=== PATIENT | female | born 1950 | race Caucasian/White ===

== ENCOUNTER → 2017-03-13 | Outpatient (CLI) | payer OTHER ==
[~2017-03-13] MED LIST: ALBU90OI6 INH; ALBU90OI61; ALLO100 PO; ALPR.5 PO; AMOCLA875 PO; ASCO500 PO; ASPI325; ASPI325 PO; ASPI81EC; ATOR10; ATOR40TA PO; BECL40OI INH; BECL80OI INH; BUME1; BUPR150ER PO; CALCIT950 PO; CHOL10002 PO; CIPR500 PO; CIPRO500 MG PO; CITA20; CO Q-10400 MG PO; COLPRO PO; CRUTCH4 USE; CYCL10 PO; Coq-1030 MG; Cymbalta60 MG; DEXALANT PO; DOCU100 PO; DULO30 PO; DULO60 PO; EPIN.3I; EPIN.3I IM; ERGO400 PO; FERR325 PO; FURO20 PO; Flagyl500 MG PO; GABA600 PO; GLUC500 PO; Gabapentin600 MG PO; HYDACE5 PO; HYDACE5325 PO; HYDCHL25; HYDCHL25 PO; HYDSUL200 PO; Hair, Skin & N1 EACH PO; IBUP800; LEVSOD50 PO; LEVSOD75 PO; LEVSOD88 PO; LISINOPRIL-? DOSE; LOSA50 PO; METO50 PO; METO50ER PO; METPRE4DP PO; METR500 PO; MOME220I; MULT50L PO; MULVITMIND PO; NAPR250 PO; NAPR500 PO; NITR.4SL SL; NYST100SU MT; Naprosyn500 MG PO; Norco 5-325 Ta1 EACH PO; Norco 7.5-3251 EACH PO; OLME20 PO; OLME5TAB PO; OLOP.1OPSO BOTHEYES; OMEP20ER; OMEP20ER PO; OXYACE5T PO; OXYC5 PO; PENVK500 PO; POTA10T PO; POTCHL10ER PO; PREG100 PO; PROB500 PO; RISP.5 PO; RISP1 PO; RXHYD5325 PO; SIMV20; SIMV40 PO; SIMV5 PO; TERB250 PO; TOCO400 PO; TRAM50; TRAM50 PO; TRAZ50; VITAMIN B122500 MCG PO; VITNEPH PO; ZINC15; Zofran Odt4 MG SL; [UNRECOGNIZED DRUG - REMARK]; [UNRECOGNIZED DRUG - REMARK]
[2017-03-14 12:33] LABS: Protein, Urine Quantitative 6.1 mg/dL (0.0-11.9)
[2017-03-14 12:36] LABS: Microalbumin, Urine Quant. 8.8 mg/L (0.000-20.000)
== END ==
LOC: OLS 07:40
PROVIDERS: Internal Medicine Nephrology
DX: N18.2 Chronic kidney disease, stage 2 (mild) (principal); D63.1 Anemia in chronic kidney disease; R80.9 Proteinuria, unspecified
CPT/HCPCS: 81050; 82043; 84156

== ENCOUNTER 2017-07-17 12:53 | Day surgery (SDC) | payer MEDICARE, OTHER ==
[~2017-07-17] VITALS: Ht 175.3 cm; Wt 122.5 kg
[~2017-07-17 12:53] MED LIST changes: -ALBU90OI61; -BUME1; -Coq-1030 MG; -MOME220I; -Naprosyn500 MG PO; -Norco 5-325 Ta1 EACH PO; -TRAM50; -ZINC15
[2017-07-17] MEDS ORDERED: Coq-1030 MG (13:19)
[2017-07-17] MEDS ORDERED: ZINC15 (13:19)
[2017-07-17] MEDS ORDERED: BUME1 (13:19)
[2017-07-17] MEDS ORDERED: TRAM50 (13:20)
[2017-07-17] MEDS ORDERED: MOME220I (13:20)
[2017-07-17] MEDS ORDERED: ALBU90OI61 (13:20)
== END 2017-07-17 15:15 | disposition home or self-care (01) ==
LOC: ORSCSDS 12:53
PROVIDERS: Surgery
PROC: 0DBK8ZX Excision of Ascending Colon, Via Natural or Artificial Opening Endoscopic, Diagnostic (ICD-10-PCS; principal; 2017-07-17 14:15)
PROC: 0DBM8ZX Excision of Descending Colon, Via Natural or Artificial Opening Endoscopic, Diagnostic (ICD-10-PCS; principal; 2017-07-17 14:15)
DX: Z12.11 Encounter for screening for malignant neoplasm of colon (principal); D12.2 Benign neoplasm of ascending colon; D12.4 Benign neoplasm of descending colon; K57.30 Diverticulosis of large intestine without perforation or abscess without bleeding; Z86.010 Personal history of colon polyps; E11.9 Type 2 diabetes mellitus without complications; I25.10 Atherosclerotic heart disease of native coronary artery without angina pectoris; N18.9 Chronic kidney disease, unspecified; E03.9 Hypothyroidism, unspecified; F32.9 Major depressive disorder, single episode, unspecified; K21.9 Gastro-esophageal reflux disease without esophagitis; G47.30 Sleep apnea, unspecified; E66.9 Obesity, unspecified; Z68.39 Body mass index [BMI] 39.0-39.9, adult; Z79.899 Other long term (current) drug therapy
CPT/HCPCS: 82947; 88305; J7120

== ENCOUNTER 2017-09-03 15:13 | Emergency (ER) | payer MEDICARE, OTHER ==
[~2017-09-03] VITALS: Ht 172.7 cm; Wt 123.4 kg
[~2017-09-03 15:13] MED LIST changes: +ALBU90OI61; +BUME1; +Coq-1030 MG; +MOME220I; +TRAM50; +ZINC15
[2017-09-03] MEDS ORDERED: Naprosyn500 MG PO (19:50)
[2017-09-03] MEDS ORDERED: CYCL10 PO (19:50)
[2017-09-03] MEDS ORDERED: Norco 5-325 Ta1 EACH PO (19:50)
== END 2017-09-03 20:12 | disposition home or self-care (01) ==
LOC: ER 15:13
DX: S39.012A Strain of muscle, fascia and tendon of lower back, initial encounter (principal); X50.9XXA Other and unspecified overexertion or strenuous movements or postures, initial encounter; Z88.8 Allergy status to other drugs, medicaments and biological substances; Z88.1 Allergy status to other antibiotic agents; Z91.030 Bee allergy status; Z79.899 Other long term (current) drug therapy; I12.9 Hypertensive chronic kidney disease with stage 1 through stage 4 chronic kidney disease, or unspecified chronic kidney disease; E11.22 Type 2 diabetes mellitus with diabetic chronic kidney disease; N18.3 Chronic kidney disease, stage 3 (moderate); J45.909 Unspecified asthma, uncomplicated; E03.9 Hypothyroidism, unspecified; E78.5 Hyperlipidemia, unspecified
CPT/HCPCS: 72100; 96374; 96375; 99283-25; J1885; J2405; J3010

== ENCOUNTER → 2018-02-12 | Outpatient (CLI) | payer MEDICARE, OTHER ==
[~2018-02-12] MED LIST changes: +Naprosyn500 MG PO; +Norco 5-325 Ta1 EACH PO
[2018-02-12 14:44] LABS: Source, Urine Clean Catch
[2018-02-12 14:57] LABS: Bilirubin, Urine Neg (Neg); Blood, Urine 1+ (Neg); Glucose Qualitative, Urine Neg (Neg); Ketones, Urine Neg (Neg); Leukocyte Esterase, Urine 3+ (Neg); Nitrite, Urine Neg (Neg); Protein, Urine Neg (Neg); Urobilinogen, Urine NORM (Normal)
[2018-02-12 15:19] LABS: Appearance, Urine Hazy (Clear); Color, Urine Yellow (P-Yellow)
[2018-02-12 15:22] LABS: White Blood Cells, Urine TNTC /hpf (0-5)
[2018-02-12 15:23] LABS: Bacteria Few /hpf; Squamous Epithelial Cells Few /hpf (Few); Transitional Epithelial Cells Rare /hpf (0-Rare)
== END | disposition home or self-care (01) ==
LOC: LAB 14:42 → LAB SHORT 14:42 → EDSTATUS 02-12 12:00 → LAB FUT 02-12 12:00
PROVIDERS: Internal Medicine
DX: R30.0 Dysuria (principal)
CPT/HCPCS: 81001; 87077; 87086; 87147; 87186

== ENCOUNTER → 2018-07-30 | Outpatient (CLI) | payer MEDICARE, OTHER ==
[2018-07-30 14:18] LABS: Source, Urine Clean Catch
[2018-07-30 15:09] LABS: Bilirubin, Urine Neg (Neg); Blood, Urine 1+ (Neg); Glucose Qualitative, Urine Neg (Neg); Ketones, Urine 1+ (Neg); Leukocyte Esterase, Urine 3+ (Neg); Nitrite, Urine Pos (Neg); Protein, Urine 2+ (Neg); Specific Gravity, Urine 1.015 (1.003-1.022); Urobilinogen, Urine NORM (Normal)
[2018-07-30 15:37] LABS: Appearance, Urine Clear (Clear); Color, Urine Yellow (P-Yellow)
[2018-07-30 15:43] LABS: Red Blood Cells, Urine 0-2 /hpf (0-2)
[2018-07-30 15:44] LABS: Squamous Epithelial Cells Rare /hpf (Few)
[2018-07-30 15:57] LABS: Amorphous Light (0-Heavy); Bacteria Mod /hpf
== END | disposition home or self-care (01) ==
LOC: LAB 14:16 → LAB SHORT 14:16
PROVIDERS: Internal Medicine
DX: N39.0 Urinary tract infection, site not specified (principal)
CPT/HCPCS: 81001; 87077; 87086; 87186

== ENCOUNTER 2018-09-18 14:41 | Observation (INO) | payer MEDICARE, OTHER ==
[~2018-09-18] VITALS: Ht 172.7 cm; Wt 102.1 kg
[~2018-09-18 14:41] MED LIST changes: -BUME1; +Bumetanide1 MG PO; -CALCIT950 PO; +CALCITRATE200 MG PO; -Coq-1030 MG; +Coq-1030 MG PO; -Cymbalta60 MG; +Cymbalta60 MG PO
[2018-09-18 15:59] LABS: BASOPHILS ABSOLUTE AUTO 0.03 K/mm3 (0.00-0.23); BASOPHILS PERCENT AUTO 0 % (0-2); EOSINOPHILS ABSOLUTE AUTO 0.06 K/mm3 (0.00-0.68); EOSINOPHILS PERCENT AUTO 1 % (0-6); Hematocrit 41.6 % (33.0-51.0); Hemoglobin 13.8 g/dL (11.5-16.0); IMMATURE GRAN ABSOLUTE AUTO 0.03 K/mm3 (0.00-0.10); IMMATURE GRAN PERCENT AUTO 0 % (0-1); LYMPHOCYTES ABSOLUTE AUTO 2.36 K/mm3 (0.84-5.20); LYMPHOCYTES PERCENT AUTO 32 % (21-46); MONOCYTES ABSOLUTE AUTO 0.52 K/mm3 (0.16-1.47); MONOCYTES PERCENT AUTO 7 % (4-13); Mean Corpuscular HGB 32.9 pg (26.0-34.0); Mean Corpuscular HGB Conc 33.2 g/dL (31.5-36.5); Mean Corpuscular Volume 99 fL (80-100); Mean Platelet Volume 12.1 fL (9.1-12.4); NEUTROPHILS ABSOLUTE AUTO 4.39 K/mm3 (1.96-9.15); NEUTROPHILS PERCENT AUTO 60 % (41-73); Platelet Count 185 K/mm3 (150-400); RDW Coefficient Variation 13.4 % (11.7-14.2); RDW Standard Deviation 49.2 fL (35.1-46.3); Red Blood Cell Count 4.19 M/mm3 (3.80-5.20); White Blood Cell Count 7.39 K/mm3 (4.00-11.30)
[2018-09-18 16:15] LABS: Alanine Aminotransfer (ALT/SGP 57 U/L (12-78); Albumin/Globulin Ratio 1.3 (0.8-1.8); Alk Phos 119 U/L (50-136); Anion Gap 9 mmol/L (6-16); Aspartate Aminotrans (AST/SGOT 57 U/L (12-37); Bilirubin, Total 0.7 mg/dL (0.1-1.0); Blood Urea Nitrogen 14 mg/dL (8-24); Bun/Creatinine Ratio 12.3 (12.0-20.0); CO2, Blood 27 mmol/L (21-32); Chloride, Blood 103 mmol/L (98-108); Creatinine, Blood 1.14 mg/dL (0.40-1.00); Globulin, Blood 3.1 g/dL (2.2-4.0); Glomerular Filtration Rate 51 (60-); Glucose, Blood 88 mg/dL (70-99); Potassium, Blood 3.1 mmol/L (3.5-5.5); Sodium, Blood 139 mmol/L (136-145); Total Protein, Blood 7.1 g/dL (6.4-8.2); Troponin I <0.015 ng/mL (0.000-0.040)
[2018-09-18 22:09] LABS: Troponin I <0.015 ng/mL (0.000-0.040)
[2018-09-18] MEDS ORDERED: EUTHYROX88 MCG PO (23:35)
[2018-09-18] MEDS ORDERED: PRAZ1 PO (23:43)
[2018-09-19 04:21] LABS: BASOPHILS ABSOLUTE AUTO 0.03 K/mm3 (0.00-0.23); BASOPHILS PERCENT AUTO 1 % (0-2); EOSINOPHILS PERCENT AUTO 2 % (0-6); Hematocrit 37.6 % (33.0-51.0); Hemoglobin 12.3 g/dL (11.5-16.0); IMMATURE GRAN ABSOLUTE AUTO 0.03 K/mm3 (0.00-0.10); IMMATURE GRAN PERCENT AUTO 1 % (0-1); LYMPHOCYTES ABSOLUTE AUTO 2.05 K/mm3 (0.84-5.20); LYMPHOCYTES PERCENT AUTO 33 % (21-46); MONOCYTES PERCENT AUTO 11 % (4-13); Mean Corpuscular HGB 33.2 pg (26.0-34.0); Mean Corpuscular HGB Conc 32.7 g/dL (31.5-36.5); Mean Platelet Volume 12.1 fL (9.1-12.4); NEUTROPHILS PERCENT AUTO 53 % (41-73); Platelet Count 148 K/mm3 (150-400); RDW Coefficient Variation 13.4 % (11.7-14.2); RDW Standard Deviation 50.4 fL (35.1-46.3); White Blood Cell Count 6.21 K/mm3 (4.00-11.30)
[2018-09-19 04:25] LABS: Mean Corpuscular Volume 102 fL (80-100)
[2018-09-19 04:46] LABS: Calcium, Blood 8.3 mg/dL (8.5-10.1); Creatinine, Blood 1.08 mg/dL (0.40-1.00); Potassium, Blood 3.6 mmol/L (3.5-5.5)
[2018-09-19 06:56] LABS: Source, Urine Clean Catch
[2018-09-19 07:02] LABS: Bilirubin, Urine Neg (Neg); Blood, Urine 1+ (Neg); Glucose Qualitative, Urine Neg (Neg); Ketones, Urine Neg (Neg); Leukocyte Esterase, Urine 3+ (Neg); Nitrite, Urine Neg (Neg); Protein, Urine Neg (Neg); Specific Gravity, Urine 1.005 (1.003-1.022); Urobilinogen, Urine NORM (Normal)
--- NOTE | 2018-09-19 07:30 | NUR ---
SHIFT SUMMARY RECEIVED REPORT FROM OLYA CARDENAS, ED. ARRIVED TO MEDICAL UNIT @ 1999 VIA STRETCHER; ABLE TO SELF-TRANSFER TO BED. ORIENTED TO ROOM AND CALL SYSTEM. A/O, ABLE TO MAKE NEEDS KNOWN. COOPERATIVE WITH CARE. ANSWERS QUESTIONS APPROPRIATELY; HOWEVER, STATES [place]. C/O PAIN TO R SIDE; MEDICATED PER EMAR. PICTURE DOCUMENTATION COMPLETED ON ABRASIONS/BRUISING. TYPICALLY USES CANE FOR AMBULATION. APPEARED TO REST MUCH OF SHIFT. NS INFUSING @ 150; NEW IV PLACED THIS AM; PREVIOUS OCCLUDED. TELE RUNNING SINUS FRANCO WITH 1ST DEGREE AND BBB @ 47 PER PCU STORE SALES LEADER. NO ACUTE CHANGES OVERNIGHT. CONTINUED TO MONITOR. CALL LIGHT AND BELONGINGS WITHIN REACH. REPORT GIVEN TO CAMILLA CARDENAS.
[2018-09-19 07:35] LABS: Appearance, Urine Cloudy (Clear); Color, Urine Yellow (P-Yellow)
[2018-09-19 07:37] LABS: Bacteria Many /hpf; Red Blood Cells, Urine 0-2 /hpf (0-2); Squamous Epithelial Cells Few /hpf (Few)
[2018-09-19 07:41] LABS: U Amphetamine Screen Not Detected; U Barbituate Screen Not Detected; U Benzodiazapine Screen Not Detected; U Buprenorphine Screen Not Detected; U Cannabinoids Screen Not Detected; U Cocaine Screen Not Detected; U Methadone Screen Not Detected; U Methamphetamine Screen Not Detected; U Opiates Screen DETECTED; U Oxycodone Screen Not Detected; U Phencyclidine Screen Not Detected; U Propoxyphene Screen Not Detected
--- NOTE | 2018-09-19 15:58 | NUR ---
echocardiogram complete
[2018-09-19] MEDS ORDERED: Budeprion Sr150 MG PO (18:13)
[2018-09-19] MEDS ORDERED: METO25 PO (18:14)
[2018-09-19] MEDS ORDERED: LOSA25 PO (18:15)
[2018-09-19] MEDS ORDERED: ONDA4ODT SL (18:15)
--- NOTE | 2018-09-19 18:50 | NUR ---
SHIFT SUMMARY. PT WITHOUT REPORT OF ANY DIZZINESS DURING SHIFT. ORTHOSTATIC BP IMPROVED THIS AFTERNOON. METOPROLOL AND COZAAR HELD THIS AM. ECHO COMPLETED. PT REPORTED C/O H/A THIS AFTERNOON, RELIEVED WITH APAP. NO SOB, N/V. PT TO D/C ONCE DONE GETTING DRESSED. IV REMOVED. D/C PAPERWORK REVIEWED WITH PT AND COPY PROVIDED. PT REPORTED NOT TAKING COZAAR AND RISPERDAL FOR 1.5 YEARS, DR. POTS NOTIFIED AND MEDICATION D/C'D. AT BEDSIDE.
== END 2018-09-19 19:12 | disposition home or self-care (01) ==
LOC: ER 14:41 → MEDS 17:34 → ER 17:34 → MEDS 19:55
PROVIDERS: Physician Assistant; ADMIT Family Medicine
DX: R55 Syncope and collapse (principal); I12.9 Hypertensive chronic kidney disease with stage 1 through stage 4 chronic kidney disease, or unspecified chronic kidney disease; E11.22 Type 2 diabetes mellitus with diabetic chronic kidney disease; N18.3 Chronic kidney disease, stage 3 (moderate); E66.9 Obesity, unspecified; E03.9 Hypothyroidism, unspecified; E87.6 Hypokalemia; G89.29 Other chronic pain; M25.511 Pain in right shoulder; K21.9 Gastro-esophageal reflux disease without esophagitis; M10.9 Gout, unspecified; Z88.1 Allergy status to other antibiotic agents; Z88.8 Allergy status to other drugs, medicaments and biological substances; Z79.899 Other long term (current) drug therapy
CPT/HCPCS: 36415; 70450; 71101; 73030; 80048; 80053; 81001; 82947; 83880; 84443; 84484; 85025; 87077; 87086; 87147; 87186; 93005; 93010; 93306; 96360; 96361; 99285-25; A9270-GY; G0378; J7030

== ENCOUNTER 2019-05-12 00:21 | Inpatient (IN) | payer OTHER ==
[~2019-05-12] VITALS: Ht 172.7 cm; Wt 97.7 kg
[~2019-05-12 00:21] MED LIST changes: +Budeprion Sr150 MG PO; +EPIPEN0.3 MG/0.3; -ERGO400 PO; +EUTHYROX88 MCG PO; -LEVSOD88 PO; +LOSA25 PO; +METO25 PO; +ONDA4ODT SL; +PRAZ1 PO; +Vitamin D2000 UNIT
[2019-05-12 02:09] LABS: BASOPHILS ABSOLUTE AUTO 0.03 K/mm3 (0.00-0.23); BASOPHILS PERCENT AUTO 0 % (0-2); EOSINOPHILS ABSOLUTE AUTO 0.06 K/mm3 (0.00-0.68); EOSINOPHILS PERCENT AUTO 1 % (0-6); Hematocrit 41.4 % (33.0-51.0); Hemoglobin 13.6 g/dL (11.5-16.0); IMMATURE GRAN ABSOLUTE AUTO 0.04 K/mm3 (0.00-0.10); IMMATURE GRAN PERCENT AUTO 1 % (0-1); LYMPHOCYTES ABSOLUTE AUTO 1.13 K/mm3 (0.84-5.20); LYMPHOCYTES PERCENT AUTO 14 % (21-46); MONOCYTES ABSOLUTE AUTO 0.74 K/mm3 (0.16-1.47); MONOCYTES PERCENT AUTO 9 % (4-13); Mean Corpuscular HGB 32.5 pg (26.0-34.0); Mean Corpuscular HGB Conc 32.9 g/dL (31.5-36.5); Mean Corpuscular Volume 99 fL (80-100); Mean Platelet Volume 11.6 fL (9.1-12.4); NEUTROPHILS ABSOLUTE AUTO 5.91 K/mm3 (1.96-9.15); NEUTROPHILS PERCENT AUTO 75 % (41-73); Platelet Count 164 K/mm3 (150-400); RDW Coefficient Variation 13.7 % (11.7-14.2); RDW Standard Deviation 50.4 fL (35.1-46.3); Red Blood Cell Count 4.18 M/mm3 (3.80-5.20); White Blood Cell Count 7.91 K/mm3 (4.00-11.30)
[2019-05-12] MEDS ORDERED: ASMANEX HFA13 G2 (02:22)
[2019-05-12 02:31] LABS: Alanine Aminotransfer (ALT/SGP 29 U/L (12-78); Albumin, Blood 3.6 g/dL (3.4-5.0); Albumin/Globulin Ratio 1.1 (0.8-1.8); Alk Phos 112 U/L (50-136); Anion Gap 7 mmol/L (6-16); Aspartate Aminotrans (AST/SGOT 24 U/L (12-37); Bilirubin, Total 0.5 mg/dL (0.1-1.0); Blood Urea Nitrogen 12 mg/dL (8-24); Bun/Creatinine Ratio 13.3 (12.0-20.0); CO2, Blood 23 mmol/L (21-32); Calcium, Blood 8.4 mg/dL (8.5-10.1); Chloride, Blood 106 mmol/L (98-108); Globulin, Blood 3.2 g/dL (2.2-4.0); Glomerular Filtration Rate >60 (60-); Glucose, Blood 101 mg/dL (70-99); Potassium, Blood 3.4 mmol/L (3.5-5.5); Sodium, Blood 136 mmol/L (136-145); Total Protein, Blood 6.8 g/dL (6.4-8.2)
[2019-05-12 04:29] LABS: Hematocrit 37.2 % (33.0-51.0); Hemoglobin 12.2 g/dL (11.5-16.0); Mean Corpuscular HGB 32.2 pg (26.0-34.0); Mean Corpuscular HGB Conc 32.8 g/dL (31.5-36.5); Mean Corpuscular Volume 98 fL (80-100); Platelet Count 157 K/mm3 (150-400); RDW Coefficient Variation 13.6 % (11.7-14.2); RDW Standard Deviation 48.9 fL (35.1-46.3); Red Blood Cell Count 3.79 M/mm3 (3.80-5.20); White Blood Cell Count 9.41 K/mm3 (4.00-11.30)
[2019-05-12 04:53] LABS: Alanine Aminotransfer (ALT/SGP 26 U/L (12-78); Albumin, Blood 3.3 g/dL (3.4-5.0); Albumin/Globulin Ratio 1.1 (0.8-1.8); Alk Phos 103 U/L (50-136); Anion Gap 5 mmol/L (6-16); Aspartate Aminotrans (AST/SGOT 22 U/L (12-37); Bilirubin, Total 0.6 mg/dL (0.1-1.0); Blood Urea Nitrogen 10 mg/dL (8-24); Bun/Creatinine Ratio 11.7 (12.0-20.0); CO2, Blood 26 mmol/L (21-32); Calcium, Blood 7.8 mg/dL (8.5-10.1); Chloride, Blood 105 mmol/L (98-108); Creatinine, Blood 0.85 mg/dL (0.40-1.00); Globulin, Blood 2.9 g/dL (2.2-4.0); Glomerular Filtration Rate >60 (60-); Glucose, Blood 105 mg/dL (70-99); Potassium, Blood 3.2 mmol/L (3.5-5.5); Sodium, Blood 136 mmol/L (136-145); Total Protein, Blood 6.2 g/dL (6.4-8.2)
--- NOTE | 2019-05-12 05:19 | NUR ---
PT ADMITTED FROM ER AT APPROX 0330 FOR R DISTAL FEMORAL FX. IMMOBILIZER IN PLACE. LLOYD WRAP TO RLE FOR RECENT BUNIONECTOMY. PT A&O X4. MEDICATED WITH 25 MCG OF FENTANYL PER EMAR. PT ABLE TO VOID IN BEDPAN. FLUIDS AND K+ INFUSING PER ORDERS. NPO. SURGICAL CONSULT CALLED IN.
[2019-05-12] MEDS ORDERED: Toviaz8 MG PO (06:11)
--- NOTE | 2019-05-12 16:38 | NUR ---
SHIFT SUMMARY PT A&OX4, VSS, 2LNC, CBGS AC/HS CNI. S/P R HIP FX, IMMOBILIZER ON, BEDREST, REPOSITIONS SELF WELL. PAIN MANAGED WITH 25 MCGS FENT AND 10 MG OXY. VINITA PO, DENIES N&V. JC PATENT & DRAINING YELLOW URINE, STAT LOCK ON, OFF FLOOR. 18G LFA. PREV SG RFOOT W/GAUZE/ACEWRAP. WIGGLES TOES/MOVES FEET/DENIES N&T. PLAN FOR NPO AT MIDNIGHT FOR POSSIBLE SURGERY TOMORROW. WILL REPORT TO NEXT RN.
--- NOTE | 2019-05-13 04:29 | NUR ---
SHIFT SUMMARY PT IS A/O X4. HAS BEEN BEDREST D/T PAIN FROM HIP FX. REPOSITIONED TOLERATED; PT DID DECLINE REPOSITIONING SEVERAL TIMES D/T PAIN WITH MOVEMENT. IMMOBILIZER IN PLACE TO R LEG; ICE USED PRN TO HELP WITH PAIN. PAIN MANAGED WITH PO AND IV PAIN MEDS PER ORDERS; SEE EMAR. PT HAS BEEN NPO SINCE MIDNIGHT WITH EXCEPTION OF PAIN PILLS. ASSISTED WITH ADL'S PRN.
[2019-05-13 04:35] LABS: Anion Gap 6 mmol/L (6-16); Blood Urea Nitrogen 9 mg/dL (8-24); Bun/Creatinine Ratio 11.5 (12.0-20.0); CO2, Blood 29 mmol/L (21-32); Calcium, Blood 8.4 mg/dL (8.5-10.1); Chloride, Blood 96 mmol/L (98-108); Creatinine, Blood 0.78 mg/dL (0.40-1.00); Glomerular Filtration Rate >60 (60-); Glucose, Blood 117 mg/dL (70-99); Potassium, Blood 3.1 mmol/L (3.5-5.5); Sodium, Blood 131 mmol/L (136-145)
--- NOTE | 2019-05-13 05:44 | NUR ---
RN STATED SHE WOULD EMPTY CATH AND DO CARE.
--- NOTE | 2019-05-13 11:00 | NUR ---
TELEPHONE CALL TO DR CASTELLANOS'S OFFICE TO INFORM THEM PT IS HERE AND WILL NOT BE AT FU APPT FOR R FOOT BUNECTOMY/HAMMERTOE SURGERY SCHEDULED FOR TODAY; CHECK TO SEE IF WILL SEE PT IN HOSPITAL AND WHETHER WANTS BANDAGE CHANGES. 'S REGULATORY AFFAIRS ANALYST STATES APPT RESCHEDULED FOR 05/25/19 AT 10 AM AND DOES NOT WANT BANDAGE CHANGES "JUST KEEP CDI."
--- NOTE | 2019-05-13 15:24 | NUR ---
SHIFT SUMMARY: HER PAIN MANAGEMENT WAS THE FOCUS OF THE DAY. SHE WAS COMPLAINING OF PAIN THROUGH MOST OF THE SHIFT. WHEN ASKED WHAT HER PAIN WAS ON A SCALE OF 1 TO 10 SHE USUALLY STATES "IT IS AT LEAST A 40!!". WHEN PT CAME TO HELP HER TRANSFER FROM BED TO CHAIR SHE COULD HARDLY STAND BECAUSE OF THE PAIN. IT TOOK A MAX ASSIST OF 2 PEOPLE SINCE SHE IS NON-WEIGHT BEARING ON HER RIGHT LEG. PATIENT WAS VERY SWEATY AND WAS CRYING IN PAIN TRYING TO TRANSFER FROM THE BED TO CHAIR. THE NURSE AND I ADMINISTERED HER PAIN MEDICATIONS TO HELP HER MOVE THE LEG. SHE IS CURRENTLY TAKING A NAP IN THE CHAIR. PATIENT HAS BEEN EATING ADEQUATELY THOUGH DURING THE DAY. SHE DOES HAVE A JC IN PLACE THAT SHOULD BE TAKEN OUT BY TOMORROW. PATIENT IS ON 2L NASAL CANNULA WITH HIGH 90'S ON HER SPO2. SHE IS ALSO ON CONTINUOUS PULSE OX. SHE IS ALERT AND OREIENTED X4. SHE DENIES ANY NUMBNESS OR TINGLING SENSATION ON THE FRACTURE OF THE RIGHT LEG. HER SON CAME IN TO SEE HER TODAY FOR A SHORT TIME. WILL CONTINUE TO MONITOR.
[2019-05-13 16:36] LABS: Anion Gap 6 mmol/L (6-16); Blood Urea Nitrogen 9 mg/dL (8-24); Bun/Creatinine Ratio 13.1 (12.0-20.0); CO2, Blood 28 mmol/L (21-32); Calcium, Blood 8.7 mg/dL (8.5-10.1); Chloride, Blood 94 mmol/L (98-108); Creatinine, Blood 0.69 mg/dL (0.40-1.00); Glomerular Filtration Rate >60 (60-); Glucose, Blood 113 mg/dL (70-99); Potassium, Blood 3.6 mmol/L (3.5-5.5); Sodium, Blood 128 mmol/L (136-145)
[2019-05-14 04:05] LABS: BASOPHILS ABSOLUTE AUTO 0.02 K/mm3 (0.00-0.23); BASOPHILS PERCENT AUTO 0 % (0-2); EOSINOPHILS PERCENT AUTO 1 % (0-6); Hematocrit 37.7 % (33.0-51.0); IMMATURE GRAN ABSOLUTE AUTO 0.05 K/mm3 (0.00-0.10); IMMATURE GRAN PERCENT AUTO 1 % (0-1); LYMPHOCYTES ABSOLUTE AUTO 1.52 K/mm3 (0.84-5.20); LYMPHOCYTES PERCENT AUTO 16 % (21-46); MONOCYTES ABSOLUTE AUTO 1.16 K/mm3 (0.16-1.47); MONOCYTES PERCENT AUTO 12 % (4-13); Mean Corpuscular HGB Conc 34.5 g/dL (31.5-36.5); Mean Platelet Volume 11.5 fL (9.1-12.4); NEUTROPHILS ABSOLUTE AUTO 6.52 K/mm3 (1.96-9.15); NEUTROPHILS PERCENT AUTO 70 % (41-73); Platelet Count 177 K/mm3 (150-400); RDW Coefficient Variation 13.2 % (11.7-14.2); RDW Standard Deviation 45.2 fL (35.1-46.3); Red Blood Cell Count 4.06 M/mm3 (3.80-5.20); White Blood Cell Count 9.37 K/mm3 (4.00-11.30)
[2019-05-14 04:07] LABS: Mean Corpuscular Volume 93 fL (80-100)
[2019-05-14 04:21] LABS: Anion Gap 7 mmol/L (6-16); Blood Urea Nitrogen 11 mg/dL (8-24); Bun/Creatinine Ratio 15.2 (12.0-20.0); CO2, Blood 29 mmol/L (21-32); Calcium, Blood 8.9 mg/dL (8.5-10.1); Chloride, Blood 93 mmol/L (98-108); Creatinine, Blood 0.72 mg/dL (0.40-1.00); Glomerular Filtration Rate >60 (60-); Glucose, Blood 104 mg/dL (70-99); Potassium, Blood 3.8 mmol/L (3.5-5.5); Sodium, Blood 129 mmol/L (136-145)
--- NOTE | 2019-05-14 05:50 | NUR ---
SHIFT SUMMARY PT RESTED WELL IN 3 TO 4 HR BLOCKS T/O NIGHT. AAOX4/ANXIOUS AT TIMES. PAIN CONTROLLED WITH 2 PAIN PILLS Q4H. NO NAUSEA/EMESIS. IMMOBILIZER TO RLE. DRESSING TO RIGHT FOOT MODERATE AMOUNT DRY SS DRAINAGE, NO CHANGE THIS SHIFT. MOVES TOES WELL BLE, DENIES N/T. FROM CHAIR TO BED LAST NIGHT 2 PERSON MAX ASSIST. JC DRAINED 300cc DARK YELLOW URINE. FREE WATER RESTRICTION. NO ACUTE CHANGES OVER NIGHT. PT NOW RESTING IN BED WITH CALL LIGHT IN REACH.
--- NOTE | 2019-05-14 16:53 | NUR ---
SHIFT SUMMARY PT HAS STRUGGLED WITH PAIN MANAGEMENT, REQUIRING IV BREAKTHRU MEDS. ADDED NEW MEDS THAT WILL BE STARTED THIS EVENING. PT EDUCATED AND STATES UNDERSTANDING. AT ONE POINT, PT WAS SWEATING AND CRYING IN PAIN DURING TX FROM BSC TO BED. BLOOD SUGARS WNL. VSS; WAS ABLE TO WEAN OFF O2. UO MINIMAL.
[2019-05-15 04:51] LABS: BASOPHILS ABSOLUTE AUTO 0.02 K/mm3 (0.00-0.23); BASOPHILS PERCENT AUTO 0 % (0-2); EOSINOPHILS ABSOLUTE AUTO 0.15 K/mm3 (0.00-0.68); EOSINOPHILS PERCENT AUTO 2 % (0-6); Hematocrit 36.6 % (33.0-51.0); Hemoglobin 12.3 g/dL (11.5-16.0); IMMATURE GRAN ABSOLUTE AUTO 0.06 K/mm3 (0.00-0.10); IMMATURE GRAN PERCENT AUTO 1 % (0-1); LYMPHOCYTES ABSOLUTE AUTO 1.76 K/mm3 (0.84-5.20); LYMPHOCYTES PERCENT AUTO 21 % (21-46); MONOCYTES ABSOLUTE AUTO 1.23 K/mm3 (0.16-1.47); MONOCYTES PERCENT AUTO 14 % (4-13); Mean Corpuscular HGB 31.8 pg (26.0-34.0); Mean Corpuscular HGB Conc 33.6 g/dL (31.5-36.5); Mean Corpuscular Volume 95 fL (80-100); Mean Platelet Volume 11.7 fL (9.1-12.4); NEUTROPHILS ABSOLUTE AUTO 5.31 K/mm3 (1.96-9.15); NEUTROPHILS PERCENT AUTO 62 % (41-73); Platelet Count 183 K/mm3 (150-400); RDW Coefficient Variation 13.3 % (11.7-14.2); RDW Standard Deviation 46.5 fL (35.1-46.3); Red Blood Cell Count 3.87 M/mm3 (3.80-5.20); White Blood Cell Count 8.53 K/mm3 (4.00-11.30)
[2019-05-15 05:08] LABS: Bun/Creatinine Ratio 21.4 (12.0-20.0); Calcium, Blood 9.4 mg/dL (8.5-10.1); Creatinine, Blood 1.03 mg/dL (0.40-1.00); Potassium, Blood 4.2 mmol/L (3.5-5.5)
--- NOTE | 2019-05-15 06:49 | NUR ---
SHIFT SUMMARY NO ACUTE CHANGES THIS SHIFT. PAIN MANAGED WITH PO MEDICATIONS. RLE IMMOBILIZER IN PLACE, LLOYD WRAP TO RIGHT FOOT APPEARS C/D/I. ABLE TO MOVE ALL FINGERS/TOES, EXTREM. SELF REPOSITIONS/SHIFTS IN BED. TOLERATING REGULAR DIET. JC IN PLACE AND DRAINING. PT APPEARS TO HAVE SLEPT WELL T/O SHIFT. IS CURRENTLY CURRENTLY RESTING IN BED WITH CALL LIGHT IN REACH AND BED IN LOWEST POSITION. WILL CON TO MONITOR AND GIVE REPORT TO ONCOMING RN.
--- NOTE | 2019-05-15 17:04 | NUR ---
SHIFT SUMMARY: PATIENT HAS BEEN SLEEPY ALL DAY BUT CAN BE EASILY AROUSED IF SAID HER NAME LOUDLY. SHE IS HARD OF HEARING SO SPEAKING LOUDLY AND FACING HER IS GUERRA FOR COMMUNICATION. RLE IMMOBILIZER IS IN PLACE, AND LLOYD WRAP TO RIGHT FOOT APPEARS C/D/I. PATIENT IS ABLE TO MOVE ALL FINGERS AND TOES. SHE DENIES ANY NUMBNESS OR TINGLING. PATIENT SELF REPOSITIONS IN BED. SHE IS ADEQUATELY EATING EACH MEAL THROUGHOUT THE SHIFT. SHE HAS NOT NEEDED INSULIN COVERAGE DURING THE SHIFT RELATED TO HER SLIDING SCALE THE DOCTOR HAS PROVIDED FOR HER. PATIENT IS CURRENTLY RESTING IN BED WITH CALL LIGHT WITHIN REACH AND BED IN LOWEST POSITION. WILL CONTINUE TO MONITOR AND GIVE REPORT TO ONCOMING RN FOR NEXT SHIFT.
--- NOTE | 2019-05-15 18:23 | NUR ---
DIGGING MACHINE OPERATOR DOCUMENTATIONS HAS BEEN REVIEWED. THIS RN AGREES WITH DOCUMENTATION BY CLAUDINE MARVIN STUDENT NURSE.
--- NOTE | 2019-05-15 22:44 | NUR ---
pt reporting pain in chest r/t heartburn. she states she has this at home and takes an antacid to relieve it. hospitalist levon called and new orders received. will administer and observe for changes.
--- NOTE | 2019-05-15 23:28 | NUR ---
pt states relief with tums. denies chest pain at this time.
--- NOTE | 2019-05-16 04:25 | NUR ---
SHIFT SUMMARY PT ALERT AND ORIENTED WITH SOME OCCASIONAL DIFFICULTY WITH UNDERSTANDING. POSSIBLY R.Jorge ESCOTO. PT MEDICATED FOR PAIN PER EMAR AFTER REPORTS OF 12/03, SHE STATED RELIEF AFTER. NEW ORDERS FOR TUMS RECEIVED AND ADMINISTERED PT EXPRESSED RELIEF. IMMOBILIZER IN PLACE. LLOYD WRAP CDI ON R FOOT. PLAN TO DISCHARGE TO [facility] TODAY.
[2019-05-16 05:43] LABS: Albumin, Blood 2.9 g/dL (3.4-5.0); Anion Gap 5 mmol/L (6-16); Blood Urea Nitrogen 17 mg/dL (8-24); Bun/Creatinine Ratio 27.2 (12.0-20.0); CO2, Blood 28 mmol/L (21-32); Calcium, Blood 9.4 mg/dL (8.5-10.1); Chloride, Blood 98 mmol/L (98-108); Creatinine, Blood 0.63 mg/dL (0.40-1.00); Glomerular Filtration Rate >60 (60-); Glucose, Blood 127 mg/dL (70-99); Phosphorus, Blood 3.6 mg/dL (2.5-4.9); Potassium, Blood 4.3 mmol/L (3.5-5.5); Sodium, Blood 131 mmol/L (136-145)
--- NOTE | 2019-05-16 13:55 | NUR ---
REPORT CALLED TO ROBERT NURSE AT [facility], PT'S DAUGHTER EMILY NOTIFIED.
== END 2019-05-16 14:13 | DRG 534 ==
LOC: ER 00:21 → SURS 02:33
PROVIDERS: Emergency Medicine; Hospitalist; Internal Medicine; Internal Medicine Hematology & Oncology; ADMIT Internal Medicine
DX: S72.401A Unspecified fracture of lower end of right femur, initial encounter for closed fracture (principal); D68.0 Von Willebrand disease; E87.1 Hypo-osmolality and hyponatremia; I12.9 Hypertensive chronic kidney disease with stage 1 through stage 4 chronic kidney disease, or unspecified chronic kidney disease; N18.3 Chronic kidney disease, stage 3 (moderate); E11.22 Type 2 diabetes mellitus with diabetic chronic kidney disease; W19.XXXA Unspecified fall, initial encounter; E03.9 Hypothyroidism, unspecified; F32.9 Major depressive disorder, single episode, unspecified; F41.9 Anxiety disorder, unspecified; M79.7 Fibromyalgia; J45.909 Unspecified asthma, uncomplicated; E66.9 Obesity, unspecified; Z68.32 Body mass index [BMI] 32.0-32.9, adult; I25.2 Old myocardial infarction
CPT/HCPCS: 36415; 71045; 73502; 73562-RT; 80048; 80053; 80069; 82947; 85025; 85027; 93005; 93010; 94640; 94760; 94762; 96361; 96374; 96375; 97110; 97162; 97166; 97530; 99285-25; A9270-GY; J1170; J2405; J2597; J3010; J3480; J7030

== ENCOUNTER → 2019-05-30 | Outpatient (CLI) | payer OTHER ==
[~2019-05-30] MED LIST changes: +ASMANEX HFA13 G2; +Toviaz8 MG PO
[2019-05-30 10:38] LABS: Anion Gap 6 mmol/L (6-16); Blood Urea Nitrogen 17 mg/dL (8-24); Bun/Creatinine Ratio 26.2 (12.0-20.0); CO2, Blood 34 mmol/L (21-32); Calcium, Blood 9.3 mg/dL (8.5-10.1); Chloride, Blood 99 mmol/L (98-108); Creatinine, Blood 0.65 mg/dL (0.40-1.00); Glomerular Filtration Rate >60 (60-); Glucose, Blood 99 mg/dL (70-99); Potassium, Blood 3.3 mmol/L (3.5-5.5); Sodium, Blood 139 mmol/L (136-145)
== END | disposition home or self-care (01) ==
LOC: LAB RH 09:45 → EDSTATUS 11:20
PROVIDERS: Internal Medicine
DX: I12.9 Hypertensive chronic kidney disease with stage 1 through stage 4 chronic kidney disease, or unspecified chronic kidney disease (principal); N18.9 Chronic kidney disease, unspecified
CPT/HCPCS: 80048

== ENCOUNTER → 2019-06-03 | Outpatient (CLI) | payer OTHER ==
[2019-06-03 09:48] LABS: Anion Gap 2 mmol/L (6-16); Blood Urea Nitrogen 11 mg/dL (8-24); Bun/Creatinine Ratio 15.5 (12.0-20.0); CO2, Blood 33 mmol/L (21-32); Calcium, Blood 9.1 mg/dL (8.5-10.1); Chloride, Blood 107 mmol/L (98-108); Creatinine, Blood 0.71 mg/dL (0.40-1.00); Free Thyroxine 1.28 ng/dL (0.70-1.60); Glomerular Filtration Rate >60 (60-); Glucose, Blood 97 mg/dL (70-99); Potassium, Blood 3.9 mmol/L (3.5-5.5); Sodium, Blood 142 mmol/L (136-145)
[2019-06-03 09:56] LABS: Triiodothyronine, Free 2.26 pg/mL (2.18-3.98)
== END | disposition home or self-care (01) ==
LOC: LAB RH 07:00 → EDSTATUS 10:29
PROVIDERS: Internal Medicine
DX: E03.9 Hypothyroidism, unspecified (principal); E11.22 Type 2 diabetes mellitus with diabetic chronic kidney disease; N18.9 Chronic kidney disease, unspecified
CPT/HCPCS: 80048; 84439; 84443; 84481

== ENCOUNTER 2019-12-27 09:14 | Day surgery (SDC) | payer OTHER ==
[~2019-12-27] VITALS: Ht 172.7 cm; Wt 98.2 kg
[~2019-12-27 09:14] MED LIST changes: -Budeprion Sr150 MG PO; +Estrace Vagin42.5 GM PV; +PREG150 PO; +Sanctura20 MG PO; +TEMA15 PO; +TOPI50 PO
--- NOTE | 2019-12-27 09:51 | NUR ---
12/27/19 0951 Ciera Ziegler CHARTED BY MARCELA HUERTARN
== END 2019-12-27 13:20 | disposition home or self-care (01) ==
LOC: ORSCSDS 09:14
PROVIDERS: Orthopaedic Surgery
PROC: 0RNJ4ZZ Release Right Shoulder Joint, Percutaneous Endoscopic Approach (ICD-10-PCS; principal; 2019-12-27 09:45)
PROC: 0LQ14ZZ Repair Right Shoulder Tendon, Percutaneous Endoscopic Approach (ICD-10-PCS; principal; 2019-12-27 09:45)
PROC: 0LS34ZZ Reposition Right Upper Arm Tendon, Percutaneous Endoscopic Approach (ICD-10-PCS; principal; 2019-12-27 09:45)
DX: M75.121 Complete rotator cuff tear or rupture of right shoulder, not specified as traumatic (principal); M75.41 Impingement syndrome of right shoulder; S46.111A Strain of muscle, fascia and tendon of long head of biceps, right arm, initial encounter; I10 Essential (primary) hypertension; I25.10 Atherosclerotic heart disease of native coronary artery without angina pectoris; G47.33 Obstructive sleep apnea (adult) (pediatric); I25.2 Old myocardial infarction; Z86.73 Personal history of transient ischemic attack (TIA), and cerebral infarction without residual deficits; K21.9 Gastro-esophageal reflux disease without esophagitis; J45.909 Unspecified asthma, uncomplicated; Z79.899 Other long term (current) drug therapy
CPT/HCPCS: C1713; J0171; J0690; J0735; J1885; J2250; J2704; J2795; J3010; J3370; J7120

== ENCOUNTER 2020-07-06 17:03 | Emergency (ER) | payer OTHER ==
[~2020-07-06] VITALS: Ht 172.7 cm; Wt 94.8 kg
[2020-07-06] MEDS ORDERED: Toviaz4 MG (20:05)
[2020-07-06] MEDS ORDERED: MYRBETRIQ25 MG PO (20:05)
[2020-07-06] MEDS ORDERED: Mobic7.5 MG PO (20:17)
[2020-07-06] MEDS ORDERED: Percocet 7.5-31 EACH PO (20:17)
== END 2020-07-06 20:36 | disposition home or self-care (01) ==
LOC: ER 17:03
DX: S39.92XA Unspecified injury of lower back, initial encounter (principal); Z88.1 Allergy status to other antibiotic agents; Z88.8 Allergy status to other drugs, medicaments and biological substances; Z91.030 Bee allergy status; Z88.5 Allergy status to narcotic agent; Z79.899 Other long term (current) drug therapy; W01.0XXA Fall on same level from slipping, tripping and stumbling without subsequent striking against object, initial encounter
CPT/HCPCS: 72100; 96372; 99283-25; A9270; J1885

== ENCOUNTER 2022-07-10 13:25 | Emergency (ER) | payer OTHER ==
[~2022-07-10] VITALS: Ht 175.3 cm; Wt 99.8 kg
[~2022-07-10 13:25] MED LIST changes: +MYRBETRIQ25 MG PO; +Mobic7.5 MG PO; +Percocet 7.5-31 EACH PO; +Toviaz4 MG
[2022-07-10 13:36] VITALS: BP 117/83
[2022-07-10] MEDS ORDERED: ONDA4ODT SL (15:59)
[2022-07-10] MEDS ORDERED: HYDR1TAB94 PO (15:59)
== END 2022-07-10 16:10 | disposition home or self-care (01) ==
LOC: ER 13:25
DX: S06.9X1A Unspecified intracranial injury with loss of consciousness of 30 minutes or less, initial encounter (principal); S00.03XA Contusion of scalp, initial encounter; S20.229A Contusion of unspecified back wall of thorax, initial encounter; S30.0XXA Contusion of lower back and pelvis, initial encounter; I12.9 Hypertensive chronic kidney disease with stage 1 through stage 4 chronic kidney disease, or unspecified chronic kidney disease; E11.22 Type 2 diabetes mellitus with diabetic chronic kidney disease; N18.30 Chronic kidney disease, stage 3 unspecified; I25.2 Old myocardial infarction; E03.9 Hypothyroidism, unspecified; Z88.5 Allergy status to narcotic agent; Z88.1 Allergy status to other antibiotic agents; Z88.8 Allergy status to other drugs, medicaments and biological substances; Z91.030 Bee allergy status; Z79.899 Other long term (current) drug therapy; W01.198A Fall on same level from slipping, tripping and stumbling with subsequent striking against other object, initial encounter; Y92.096 Garden or yard of other non-institutional residence as the place of occurrence of the external cause
CPT/HCPCS: 70450; 72072; 72125; A9270

== ENCOUNTER 2022-09-25 18:54 | Inpatient (IN) | payer OTHER ==
[~2022-09-25] VITALS: Ht 170.2 cm; Wt 98.4 kg
[~2022-09-25 18:54] MED LIST changes: +BUPROPION XL450 M1 PO; +HYDR1TAB94 PO; -Toviaz4 MG; +Toviaz4 MG PO
[2022-09-25 21:19] LABS: BASOPHILS ABSOLUTE AUTO 0.02 K/mm3 (0.00-0.23); BASOPHILS PERCENT AUTO 0 % (0-2); EOSINOPHILS ABSOLUTE AUTO 0.15 K/mm3 (0.00-0.68); EOSINOPHILS PERCENT AUTO 2 % (0-6); Hematocrit 39.3 % (33.0-51.0); Hemoglobin 12.6 g/dL (11.5-16.0); IMMATURE GRAN ABSOLUTE AUTO 0.04 K/mm3 (0.00-0.10); IMMATURE GRAN PERCENT AUTO 1 % (0-1); LYMPHOCYTES ABSOLUTE AUTO 1.29 K/mm3 (0.84-5.20); LYMPHOCYTES PERCENT AUTO 19 % (21-46); MONOCYTES ABSOLUTE AUTO 0.56 K/mm3 (0.16-1.47); MONOCYTES PERCENT AUTO 8 % (4-13); Mean Corpuscular HGB 32.3 pg (26.0-34.0); Mean Corpuscular HGB Conc 32.1 g/dL (31.5-36.5); Mean Corpuscular Volume 101 fL (80-100); Mean Platelet Volume 11.3 fL (9.1-12.4); NEUTROPHILS ABSOLUTE AUTO 4.82 K/mm3 (1.96-9.15); NEUTROPHILS PERCENT AUTO 70 % (41-73); Platelet Count 213 K/mm3 (150-400); RDW Coefficient Variation 14.8 % (11.7-14.2); RDW Standard Deviation 54.8 fL (35.1-46.3); White Blood Cell Count 6.88 K/mm3 (4.00-11.30)
[2022-09-25 21:42] LABS: Albumin, Blood 3.3 g/dL (3.4-5.0); Albumin/Globulin Ratio 1.1 (0.8-1.8); Bilirubin, Total 0.5 mg/dL (0.1-1.0); Bun/Creatinine Ratio 13.6 (12.0-20.0); Calcium, Blood 8.4 mg/dL (8.5-10.1); Creatinine, Blood 0.96 mg/dL (0.40-1.00); Potassium, Blood 4.1 mmol/L (3.5-5.5); Total Protein, Blood 6.3 g/dL (6.4-8.2)
[2022-09-26 00:40] VITALS: BP 115/95
[2022-09-26 00:49] LABS: International Normalized Ratio 0.93; Prothrombin Time Results 9.8 Sec (9.7-11.5)
[2022-09-26] MEDS ORDERED: TOPI25 PO (01:38)
[2022-09-26] MEDS ORDERED: MYRBETRIQ50 MG PO (01:40)
[2022-09-26 04:22] LABS: BASOPHILS ABSOLUTE AUTO 0.03 K/mm3 (0.00-0.23); BASOPHILS PERCENT AUTO 0 % (0-2); EOSINOPHILS ABSOLUTE AUTO 0.18 K/mm3 (0.00-0.68); EOSINOPHILS PERCENT AUTO 3 % (0-6); Hematocrit 38.9 % (33.0-51.0); Hemoglobin 12.2 g/dL (11.5-16.0); IMMATURE GRAN ABSOLUTE AUTO 0.04 K/mm3 (0.00-0.10); IMMATURE GRAN PERCENT AUTO 1 % (0-1); LYMPHOCYTES ABSOLUTE AUTO 2.16 K/mm3 (0.84-5.20); LYMPHOCYTES PERCENT AUTO 30 % (21-46); MONOCYTES ABSOLUTE AUTO 0.94 K/mm3 (0.16-1.47); MONOCYTES PERCENT AUTO 13 % (4-13); Mean Corpuscular HGB 32.2 pg (26.0-34.0); Mean Corpuscular HGB Conc 31.4 g/dL (31.5-36.5); Mean Corpuscular Volume 103 fL (80-100); Mean Platelet Volume 11.4 fL (9.1-12.4); NEUTROPHILS ABSOLUTE AUTO 3.95 K/mm3 (1.96-9.15); NEUTROPHILS PERCENT AUTO 54 % (41-73); Platelet Count 152 K/mm3 (150-400); RDW Coefficient Variation 14.9 % (11.7-14.2); RDW Standard Deviation 55.7 fL (35.1-46.3); Red Blood Cell Count 3.79 M/mm3 (3.80-5.20)
--- NOTE | 2022-09-26 04:28 | NUR ---
SUMMARY PATIENT NEW ADMIT FOR L DISTAL FEMUR FX. SPLINT IN PLACE LEG ELEVATED ON PILLOWS. NPO SINCE MIDNIGHT. VSS, IVF RUNNING, DENIES PAIN AT THIS TIME. WAS MEDICATED FOR PAIN IN ED AND TOLERATED WELL. PATIENT IS AOX4, NO IGINTION SOURCES FOUND. WILL REPORT TO DAY RN.
[2022-09-26 04:42] LABS: Albumin, Blood 3.3 g/dL (3.4-5.0); Albumin/Globulin Ratio 1.1 (0.8-1.8); Bilirubin, Total 0.4 mg/dL (0.1-1.0); Bun/Creatinine Ratio 16.1 (12.0-20.0); Calcium, Blood 8.2 mg/dL (8.5-10.1); Creatinine, Blood 0.93 mg/dL (0.40-1.00); Globulin, Blood 2.9 g/dL (2.2-4.0); Potassium, Blood 3.9 mmol/L (3.5-5.5); Total Protein, Blood 6.2 g/dL (6.4-8.2)
[2022-09-26 05:44] VITALS: BP 117/58
[2022-09-26 07:52] VITALS: BP 122/68
--- NOTE | 2022-09-26 14:20 | NUR ---
Pt. is awake in bed and welcomes my visit. Pt. is pleasant. Facilitate an extended life review where the pt. verbalizes the recent loss of her second , and a previous tragic loss of her youngest daughter in a traffic accident. Listen with empathy and calming presence. Pt. displayed evidence of a cathertic release of emotions. Pt. had a visitor come visit. Prayed with the Pt. Pt. verbalized gratitude for the spiritual care visit.
[2022-09-26 14:33] VITALS: BP 117/59
--- NOTE | 2022-09-26 16:25 | NUR ---
SHIFT SUMMARY L LEG REMAINS IN SPLINT. CAP REFILL <3, WARM TO TOUCH. PLAN IS FOR PROCEDURE TOMORROW. 2 UNITS OF PRBC ARE ORDERED AND CHANGE MANAGEMENT CONSULTANT FOR THE OR ALONG WITH MEDICATIONS FOR VON WILDEBRANDS DISEASE. PT NEEDS ACCURATE WEIGHT SENT TO PHARMACY AND MEDICATION TO BE ADMINISTERED 30 MINUTES BEFORE PROCEDURE. PT WILL BE NPO AT MIDNIGHT. PAIN MANAGED PER EMAR. PT REPORTS RELIEF WITH NEW CHANGES TO PAIN MEDS.
--- NOTE | 2022-09-26 17:53 | NUR ---
IGNITION RISK SCREEN FOR. PT DENIES
[2022-09-26 20:04] VITALS: BP 133/68
[2022-09-27] VITALS (15 sets, daily range): BP systolic 114–151; BP diastolic 66–96
[2022-09-27 05:01] LABS: BASOPHILS ABSOLUTE AUTO 0.02 K/mm3 (0.00-0.23); BASOPHILS PERCENT AUTO 0 % (0-2); EOSINOPHILS ABSOLUTE AUTO 0.15 K/mm3 (0.00-0.68); EOSINOPHILS PERCENT AUTO 3 % (0-6); Hematocrit 34.8 % (33.0-51.0); Hemoglobin 11.3 g/dL (11.5-16.0); IMMATURE GRAN ABSOLUTE AUTO 0.01 K/mm3 (0.00-0.10); IMMATURE GRAN PERCENT AUTO 0 % (0-1); LYMPHOCYTES ABSOLUTE AUTO 1.52 K/mm3 (0.84-5.20); LYMPHOCYTES PERCENT AUTO 32 % (21-46); MONOCYTES ABSOLUTE AUTO 0.55 K/mm3 (0.16-1.47); MONOCYTES PERCENT AUTO 12 % (4-13); Mean Corpuscular HGB 32.5 pg (26.0-34.0); Mean Corpuscular HGB Conc 32.5 g/dL (31.5-36.5); Mean Corpuscular Volume 100 fL (80-100); NEUTROPHILS ABSOLUTE AUTO 2.48 K/mm3 (1.96-9.15); NEUTROPHILS PERCENT AUTO 53 % (41-73); Platelet Count 159 K/mm3 (150-400); RDW Coefficient Variation 14.6 % (11.7-14.2); RDW Standard Deviation 53.1 fL (35.1-46.3); Red Blood Cell Count 3.48 M/mm3 (3.80-5.20); White Blood Cell Count 4.73 K/mm3 (4.00-11.30)
--- NOTE | 2022-09-27 05:08 | NUR ---
SUMMARY PATIENT IS AOX4, RESTING COMFORTABLY AT THIS TIME, MEDICATED FOR PAIN X2 THIS SHIFT AND TOLERATES WELL. NPO SINCE MIDNIGHT. REPOSITIONS WITH ASSIST. VOIDING SPONTANEOUSLY, USING BEDPAN. CALLS APPROPRAITELY. VSS, CALL LIGHT IN REACH. WILL REPORT TO DAY RN.
[2022-09-27 05:11] LABS: Bun/Creatinine Ratio 13.8 (12.0-20.0); Calcium, Blood 8.3 mg/dL (8.5-10.1); Creatinine, Blood 0.87 mg/dL (0.40-1.00); Potassium, Blood 3.7 mmol/L (3.5-5.5)
--- NOTE | 2022-09-27 09:24 | NUR ---
PT HAS 20G IV THAT FLUSHES WELL AND FLOWS TO GRAVITY.
--- NOTE | 2022-09-27 09:31 | NUR ---
PT GLASSES AND DENTURES TAKEN TO PACU FOR SAFEKEEPING.
--- NOTE | 2022-09-27 14:37 | NUR ---
POST OP: REPORT RECEIVED FROM IMAGING CENTER MANAGERTHERESA AGUIRRE. PT TO UNIT AT 1230, VSS, A/O. SURGICAL SITE CDI. L PEDAL PULSE +2, PT ABLE TO WIGGLE TOES. PT DENIES PAIN/NAUSEA AT THIS TIME. PT INSTRUCTED TO USE CALL LIGHT IF NEED TO VOID. TXA INFUSED. PT FAMILY AT BEDSIDE.
--- NOTE | 2022-09-27 18:42 | NUR ---
SHIFT SUMMARY POD0 L KNEE FX REPAIR, A/O X4, VSS, TOLERATING PO, PAIN MANAGED PER EMAR, SS CONSULT PLACED FOR ASSISTANCE WITH DISCHARGE PLANNING AND RETIREMENT CARE PLANNING WELL, A VISITING FRIEND REPORTS THAT SHE HAS HAD MULTIPLE FALLS AT HOME AND IS CONCERNED FOR HER SAFETY IF SHE WAS TO GO HOME SHE ALSO LIVES ALONE. NO ACUTE EVENTS THIS SHIFT, CALL LIGHT IN REACH,
[2022-09-28 01:19] VITALS: BP 131/63
[2022-09-28 04:05] VITALS: BP 127/63
[2022-09-28 07:30] VITALS: BP 121/67
[2022-09-28 15:02] VITALS: BP 114/63
--- NOTE | 2022-09-28 19:47 | NUR ---
SHIFT SUMMARY PT A&OX4, VSS/RA, VINITA PO, PAIN MANAGED, VOIDING/BSC, AMB STAND PIVOT WITH 2 PP FWW/GB - UP TO CHAIR/BSC/BED. POD1 ORIF ASA, NWB, DOC CDI, PHYSICAL THERAPY EVAL'D. REPORT TO LOBITO CARDENAS.
[2022-09-28 20:44] VITALS: BP 107/64
[2022-09-29 03:38] VITALS: BP 128/74
[2022-09-29 04:07] LABS: BASOPHILS ABSOLUTE AUTO 0.01 K/mm3 (0.00-0.23); BASOPHILS PERCENT AUTO 0 % (0-2); EOSINOPHILS ABSOLUTE AUTO 0.09 K/mm3 (0.00-0.68); EOSINOPHILS PERCENT AUTO 2 % (0-6); Hemoglobin 9.6 g/dL (11.5-16.0); IMMATURE GRAN ABSOLUTE AUTO 0.02 K/mm3 (0.00-0.10); IMMATURE GRAN PERCENT AUTO 0 % (0-1); LYMPHOCYTES ABSOLUTE AUTO 1.34 K/mm3 (0.84-5.20); LYMPHOCYTES PERCENT AUTO 26 % (21-46); MONOCYTES ABSOLUTE AUTO 0.58 K/mm3 (0.16-1.47); MONOCYTES PERCENT AUTO 11 % (4-13); Mean Corpuscular HGB 32.2 pg (26.0-34.0); Mean Corpuscular HGB Conc 33.1 g/dL (31.5-36.5); Mean Corpuscular Volume 97 fL (80-100); Mean Platelet Volume 10.8 fL (9.1-12.4); NEUTROPHILS ABSOLUTE AUTO 3.07 K/mm3 (1.96-9.15); NEUTROPHILS PERCENT AUTO 60 % (41-73); Platelet Count 160 K/mm3 (150-400); RDW Coefficient Variation 14.4 % (11.7-14.2); RDW Standard Deviation 50.9 fL (35.1-46.3); Red Blood Cell Count 2.98 M/mm3 (3.80-5.20); White Blood Cell Count 5.11 K/mm3 (4.00-11.30)
[2022-09-29 04:29] LABS: Bun/Creatinine Ratio 24.9 (12.0-20.0); Calcium, Blood 8.2 mg/dL (8.5-10.1); Creatinine, Blood 0.68 mg/dL (0.40-1.00); Potassium, Blood 3.7 mmol/L (3.5-5.5)
--- NOTE | 2022-09-29 05:53 | NUR ---
SHIFT SUMMARY PT A&OX4, AND COOPERATIVE WITH CARE. NO ACUTE CHANGES. VSS. MEDICATING FOR PAIN PER EMAR. NWB L LEG, 2-ASSIST STAND/PIVOT. BSC TO VOID. AQUACEL TO L LEG, C/D/I. CALLS APPROPRIATELY, CALL LIGHT WITHIN REACH.
[2022-09-29 07:34] VITALS: BP 118/62
[2022-09-29 14:55] LABS: Source, Urine Foley catheter
[2022-09-29 15:13] LABS: Appearance, Urine Hazy (Clear); Bilirubin, Urine Neg (Neg); Blood, Urine Neg (Neg); Color, Urine Yellow (P-Yellow); Glucose Qualitative, Urine Neg (Neg); Ketones, Urine 1+ (Neg); Leukocyte Esterase, Urine 1+ (Neg); Nitrite, Urine Pos (Neg); Protein, Urine 1+ (Neg); Specific Gravity, Urine 1.025 (1.003-1.022); Urobilinogen, Urine NORM (Normal)
[2022-09-29 15:37] LABS: Bacteria Many /hpf; Red Blood Cells, Urine 0-2 /hpf (0-2); Squamous Epithelial Cells Few /hpf (Few); Yeast/Fungi Urine Mod /hpf
[2022-09-29 15:38] LABS: Amorphous Mod (0-Heavy); Hyaline Casts 0-2 /lpf (0-2)
[2022-09-29 16:43] VITALS: BP 103/75
--- NOTE | 2022-09-29 18:49 | NUR ---
SHIFT SUMMARY PT A&OX4, VSS/RA, VINITA PO, PAIN MANAGED, VOIDING/BSC(URINE SAMPLE SENT), AMB STAND PIVOT WITH 2 PP FWW/GB - UP TO CHAIR/BSC/BED. POD2 ORIF LLE, NWB, DOC CDI. WILL REPORT TO ONCOMING NOC RN.
[2022-09-29 19:08] VITALS: BP 109/69
[2022-09-30 04:44] VITALS: BP 120/59
--- NOTE | 2022-09-30 06:49 | NUR ---
SHIFT SUMMARY PT A&OX4, AND COOPERATIVE WITH CARE. NO ACUTE CHANGES, VSS. MEDICATED FOR PAIN ONCE DURING SHIFT. TOLERATING PO INTAKE. 1-2 ASSIST TO BSC TO VOID. AQUACEL TO L LEG C/D/I. RHIANNA BRADLEY IN PLACE. CALLS APPROPRIATELY, CALL LIGHT WITHIN REACH.
[2022-09-30 07:32] VITALS: BP 122/62
--- NOTE | 2022-09-30 14:15 | NUR ---
SHIFT SUMMARY: POD 3 LEFT LEG ORIF NO SIGNIFICANT CHANGES. PATIENT IS SLIGHTLY [place] DE[place] BUT IS OTHERWISE A&OX4. VS ARE WNL AND IS ON RA. PATIENTS PAIN IS MANAGED WITH THE PO OXYCODONE AND TYLENOL. HER LEFT LEG HAS AN AQUACEL THAT IS C/D/I. PATIENT DENIES NUMBNESS OR TINGLING IN ALL EXTREMITITES. SHE IS A SBA WITH FWW AND GAIT BELT TO THE BSC DUE TO BEING NON-WEIGHT BEARING TO THE LEFT LEG. PATIENT IS TOLERATING PO INTAKE AND IS VOIDING. SHE IS LAYING IN THE RECLINER CHAIR WITH HER LEGS ELEVATED AND CALL LIGHT IN REACH. THE PLAN IS TO BE DISCHARGED TO A SNF TOMORROW.
--- NOTE | 2022-09-30 14:32 | NUR ---
PATIENT WAS EDUCATED ON IGNITION SOURCES AND RISK OF INJURY WITH OXYGEN IN USE. PATIENT VERBALIZED UNDERSTANDING OF EDUCATION AND HAD NO FURTHER QUESTIONS AT THIS TIME.
[2022-09-30 14:57] VITALS: BP 116/80
[2022-09-30 19:09] VITALS: BP 120/79
--- NOTE | 2022-10-01 04:45 | NUR ---
SHIFT SUMMARY PT A&OX4, AND COOPERATIVE WITH CARE. NO ACUTE CHANGES, VSS. MEDICATING FOR PAIN PER EMAR. TOLERATING PO INTAKE. 1-ASSIST TO BSC. DRESSING TO L LEG C/D/I. CALLS APPROPRIATELY, CALL LIGHT WITHIN REACH. PLAN IS TO D/C TODAY PENDING INSURANCE APPROVAL FOR SNF.
[2022-10-01 07:22] VITALS: BP 122/63
[2022-10-01 09:20] LABS: SARS-Cov-2 (COVID-19) PCR, MMC NEGATIVE (NEGATIVE)
--- NOTE | 2022-10-01 13:35 | NUR ---
Pt. is sitting up in a recliner, and is just finishing lunch. Pt. welcomed my visit and since I have previously seen this Pt. rapport is quicly established. Pt. 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 Listen with empathy and a calming presence. Pastoral group counselor is given, and pt. displays evidence of less anxiety and lightened mood. Prayed with the Pt. Pt. verbalized graitutde for the spirituall care visit and welcomed this therapeutic case manager to return.
[2022-10-01 15:07] VITALS: BP 136/73
--- NOTE | 2022-10-01 16:58 | NUR ---
SHIFT SUMMARY NO ACUTE CHANGES THIS SHIFT. POD 4 ORIF TO LEFT FEMUR. AQUACEL IN PLACE, C/D/I. PATIENT UP WITH 1P ASSIST W/ FWW & GB, NWB LEFT LEG. EATING, DRINKING, & VOIDING WELL. PAIN MANAGED WELL PER EMAR. PATIENT APPROVED LATE THIS AFTERNOON TO DC TO [facility], ARRANGMENTS MADE FOR PATIENT TO BE TRANSFERRED TOMORROW APPROX 1300. CALL LIGHT IN REACH, CALLS APPROPRIATELY. WILL REPORT TO ONCOMING RN AT 1900.
[2022-10-01 19:42] VITALS: BP 130/70
[2022-10-02 05:07] VITALS: BP 128/63
--- NOTE | 2022-10-02 06:01 | NUR ---
SHIFT SUMMARY NO ACUTE CHANGES TO REPORT OVERNIGHT, PT HAS RESTED T/O SHIFT. PT HAS AMBULATED FROM THE RECLINER AND TO THE [facility] THIS SHIFT. STAND PIVOT AND COMPLIANT WITH WEIGHT BEARING RESTRICTIONS. DRESSING INTACT TO LEFT HIP. PAIN MANAGED PER EMAR. VITALS STABLE. PLAN IS FOR DC TO SNF TODAY. FIRE RISK ASSESSED THIS SHIFT, PT EDUCATED ON FIRE RISK AND IGNITION SOURCES. PT DENIES HAVING IGNITION SOURCES.
[2022-10-02 07:33] VITALS: BP 120/64
--- NOTE | 2022-10-02 14:58 | NUR ---
SHIFT SUMMARY POD4 L KNEE ORIF, A/OX4, VSS, TOLERATING PO, PAIN WELL MANAGED PER EMAR, VOIDING WELL. REPORT CALLED TO [facility] WHERE SHE WAS IN TRANSIT TO AFTER BEING PICKED UP BY TRANSPORT SERVICES.
== END 2022-10-02 13:37 | disposition home or self-care (01) | DRG 481 ==
LOC: ER 18:54 → SURS 22:54
PROVIDERS: Emergency Medicine; Internal Medicine; Orthopaedic Surgery; ADMIT Internal Medicine
PROC: 0QSC04Z Reposition Left Lower Femur with Internal Fixation Device, Open Approach (ICD-10-PCS; principal; 2022-09-27 09:30)
DX: S72.402A Unspecified fracture of lower end of left femur, initial encounter for closed fracture (principal); D68.00 Von Willebrand disease, unspecified; J45.909 Unspecified asthma, uncomplicated; I12.9 Hypertensive chronic kidney disease with stage 1 through stage 4 chronic kidney disease, or unspecified chronic kidney disease; E11.22 Type 2 diabetes mellitus with diabetic chronic kidney disease; N18.30 Chronic kidney disease, stage 3 unspecified; E66.9 Obesity, unspecified; E03.9 Hypothyroidism, unspecified; M17.12 Unilateral primary osteoarthritis, left knee; E78.5 Hyperlipidemia, unspecified; G47.33 Obstructive sleep apnea (adult) (pediatric); K21.9 Gastro-esophageal reflux disease without esophagitis; Z68.33 Body mass index [BMI] 33.0-33.9, adult; W18.30XA Fall on same level, unspecified, initial encounter; Z88.1 Allergy status to other antibiotic agents; Z88.8 Allergy status to other drugs, medicaments and biological substances; Z91.038 Other insect allergy status; Z79.899 Other long term (current) drug therapy; Z79.890 Hormone replacement therapy; Z79.891 Long term (current) use of opiate analgesic; I25.2 Old myocardial infarction; Z87.19 Personal history of other diseases of the digestive system; Z90.89 Acquired absence of other organs; Z90.710 Acquired absence of both cervix and uterus; Z98.84 Bariatric surgery status; Z90.49 Acquired absence of other specified parts of digestive tract; Z90.10 Acquired absence of unspecified breast and nipple; Z88.5 Allergy status to narcotic agent
CPT/HCPCS: 29505; 36415; 73552; 73560-LT; 73562-LT; 73700; 80048; 80053; 81001; 82947; 83880; 85025; 85610; 86850; 86900; 86901; 86902; 86922; 87077; 87086; 87106; 87186; 97110; 97116; 97161; 99285-25; A9270; C1713; C1769; J0690; J1100; J1170; J2371; J2405; J2597; J2704; J3010; J7120; U0002

== ENCOUNTER → 2023-01-23 | Outpatient (CLI) | payer OTHER ==
[~2023-01-23] MED LIST changes: +MYRBETRIQ50 MG PO; +TOPI25 PO
[2023-01-23 15:38] LABS: Hematocrit 37.5 % (33.0-51.0); Hemoglobin 11.7 g/dL (11.5-16.0); Mean Corpuscular HGB 29.5 pg (26.0-34.0); Mean Corpuscular HGB Conc 31.2 g/dL (31.5-36.5); Mean Corpuscular Volume 95 fL (80-100); Mean Platelet Volume 12.3 fL (9.1-12.4); Platelet Count 237 K/mm3 (150-400); RDW Coefficient Variation 16.4 % (11.7-14.2); RDW Standard Deviation 56.5 fL (35.1-46.3); Red Blood Cell Count 3.97 M/mm3 (3.80-5.20); White Blood Cell Count 5.72 K/mm3 (4.00-11.30)
[2023-01-23 17:48] LABS: Albumin, Blood 3.6 g/dL (3.4-5.0); Albumin/Globulin Ratio 1.2 (0.8-1.8); Bilirubin, Total 0.5 mg/dL (0.1-1.0); Bun/Creatinine Ratio 12.7 (12.0-20.0); Calcium, Blood 8.9 mg/dL (8.5-10.1); Creatinine, Blood 0.95 mg/dL (0.40-1.00); Globulin, Blood 2.9 g/dL (2.2-4.0); Potassium, Blood 3.9 mmol/L (3.5-5.5); Thyroid Stimulating Hormone 1.55 uIU/mL (0.360-4.800); Total Protein, Blood 6.5 g/dL (6.4-8.2)
[2023-01-26 11:22] LABS: HEMOGLOBIN A1C 5.3 % (4.8-5.6)
== END ==
LOC: LAB SHORT 13:01 → LAB 13:01
PROVIDERS: Internal Medicine
DX: E03.9 Hypothyroidism, unspecified (principal); E55.9 Vitamin D deficiency, unspecified; I10 Essential (primary) hypertension; R73.9 Hyperglycemia, unspecified
CPT/HCPCS: 36415; 80053; 82306; 83036; 84443; 85027

== ENCOUNTER 2023-03-03 14:50 | Emergency (ER) | payer OTHER ==
[~2023-03-03] VITALS: Ht 175.3 cm; Wt 85.3 kg
[2023-03-03 14:58] VITALS: BP 122/68
[2023-03-03 16:36] LABS: Albumin, Blood 3.5 g/dL (3.4-5.0); Albumin/Globulin Ratio 1.2 (0.8-1.8); Bilirubin, Total 0.5 mg/dL (0.1-1.0); Calcium, Blood 8.1 mg/dL (8.5-10.1); Creatinine, Blood 0.83 mg/dL (0.40-1.00); Potassium, Blood 3.5 mmol/L (3.5-5.5); Total Protein, Blood 6.5 g/dL (6.4-8.2)
[2023-03-03 17:04] LABS: BASOPHILS ABSOLUTE AUTO 0.02 K/mm3 (0.00-0.23); BASOPHILS PERCENT AUTO 0 % (0-2); EOSINOPHILS ABSOLUTE AUTO 0.06 K/mm3 (0.00-0.68); EOSINOPHILS PERCENT AUTO 1 % (0-6); Hematocrit 33.3 % (33.0-51.0); IMMATURE GRAN ABSOLUTE AUTO 0.04 K/mm3 (0.00-0.10); IMMATURE GRAN PERCENT AUTO 1 % (0-1); LYMPHOCYTES ABSOLUTE AUTO 1.55 K/mm3 (0.84-5.20); LYMPHOCYTES PERCENT AUTO 34 % (21-46); MONOCYTES PERCENT AUTO 11 % (4-13); Mean Corpuscular HGB 30.9 pg (26.0-34.0); Mean Corpuscular Volume 94 fL (80-100); NEUTROPHILS ABSOLUTE AUTO 2.42 K/mm3 (1.96-9.15); NEUTROPHILS PERCENT AUTO 53 % (41-73); RDW Coefficient Variation 16.8 % (11.7-14.2); RDW Standard Deviation 57.7 fL (35.1-46.3); Red Blood Cell Count 3.56 M/mm3 (3.80-5.20); White Blood Cell Count 4.59 K/mm3 (4.00-11.30)
[2023-03-03] MEDS ORDERED: LIDO700A20 TOP (17:23)
[2023-03-03 17:34] LABS: Mean Platelet Volume 12.4 fL (9.1-12.4); Platelet Count 194 K/mm3 (150-400)
== END 2023-03-03 17:44 | disposition home or self-care (01) ==
LOC: ER 14:50
PROVIDERS: Physician Assistant
DX: S20.212A Contusion of left front wall of thorax, initial encounter (principal); M81.0 Age-related osteoporosis without current pathological fracture; I12.9 Hypertensive chronic kidney disease with stage 1 through stage 4 chronic kidney disease, or unspecified chronic kidney disease; E11.22 Type 2 diabetes mellitus with diabetic chronic kidney disease; N18.30 Chronic kidney disease, stage 3 unspecified; D68.00 Von Willebrand disease, unspecified; J45.909 Unspecified asthma, uncomplicated; E03.9 Hypothyroidism, unspecified; I25.2 Old myocardial infarction; W22.8XXA Striking against or struck by other objects, initial encounter; W18.30XA Fall on same level, unspecified, initial encounter; Z88.5 Allergy status to narcotic agent; Z88.1 Allergy status to other antibiotic agents; Z88.8 Allergy status to other drugs, medicaments and biological substances; Z91.030 Bee allergy status; Z79.899 Other long term (current) drug therapy; Z79.890 Hormone replacement therapy
CPT/HCPCS: 71046; 80053; 85025; A9270

== ENCOUNTER → 2023-06-18 | Outpatient (CLI) | payer MEDICARE, OTHER ==
[~2023-06-18] MED LIST changes: +CEFP200 PO; +LIDO700A20 TOP; +PROP60 PO; +TOPI100 PO; +TROSPIUM CHLORI20 MG PO
[2023-06-18 19:27] LABS: Creatinine Urine 77.3 mg/dL (27.00-270.00); Microalbumin, Urine Quant. 33.3 mg/L (0.000-20.000); Protein, Urine Quantitative 21.8 mg/dL (0.0-11.9)
== END | disposition home or self-care (01) ==
LOC: LAB SHORT 17:07 → LAB 17:07
PROVIDERS: Internal Medicine Nephrology
DX: N18.30 Chronic kidney disease, stage 3 unspecified (principal); D63.1 Anemia in chronic kidney disease; N25.81 Secondary hyperparathyroidism of renal origin; E55.9 Vitamin D deficiency, unspecified; E78.00 Pure hypercholesterolemia, unspecified; R76.9 Abnormal immunological finding in serum, unspecified; R94.5 Abnormal results of liver function studies; R94.6 Abnormal results of thyroid function studies
CPT/HCPCS: 82043; 82570; 84156

== ENCOUNTER 2023-06-26 20:44 | Emergency (ER) | payer OTHER ==
[~2023-06-26] VITALS: Ht 175.3 cm; Wt 78.0 kg
[~2023-06-26 20:44] MED LIST changes: -CEFP200 PO; -PROP60 PO; -TOPI100 PO; -TROSPIUM CHLORI20 MG PO
[2023-06-26 22:15] LABS: BASOPHILS ABSOLUTE AUTO 0.02 K/mm3 (0.00-0.23); BASOPHILS PERCENT AUTO 0 % (0-2); EOSINOPHILS ABSOLUTE AUTO 0.04 K/mm3 (0.00-0.68); EOSINOPHILS PERCENT AUTO 1 % (0-6); Hematocrit 34.4 % (33.0-51.0); Hemoglobin 10.7 g/dL (11.5-16.0); IMMATURE GRAN ABSOLUTE AUTO 0.01 K/mm3 (0.00-0.10); IMMATURE GRAN PERCENT AUTO 0 % (0-1); LYMPHOCYTES ABSOLUTE AUTO 1.98 K/mm3 (0.84-5.20); LYMPHOCYTES PERCENT AUTO 35 % (21-46); MONOCYTES PERCENT AUTO 9 % (4-13); Mean Corpuscular HGB 29.7 pg (26.0-34.0); Mean Corpuscular HGB Conc 31.1 g/dL (31.5-36.5); Mean Corpuscular Volume 96 fL (80-100); Mean Platelet Volume 11.3 fL (9.1-12.4); NEUTROPHILS ABSOLUTE AUTO 3.06 K/mm3 (1.96-9.15); NEUTROPHILS PERCENT AUTO 55 % (41-73); Platelet Count 205 K/mm3 (150-400); RDW Coefficient Variation 14.1 % (11.7-14.2); RDW Standard Deviation 49.1 fL (35.1-46.3); White Blood Cell Count 5.61 K/mm3 (4.00-11.30)
[2023-06-26 23:39] LABS: Acetaminophen, Random 29.7 ug/mL (10.0-30.0); Magnesium, Blood 2.1 mg/dL (1.6-2.4); Salicylate <1.7 mg/dL (2.8-20.0)
[2023-06-26 23:43] LABS: Alanine Aminotransfer (ALT/SGP 20 U/L (12-78); Albumin, Blood 3.3 g/dL (3.4-5.0); Albumin/Globulin Ratio 1.2 (0.8-1.8); Alk Phos 73 U/L (50-136); Anion Gap 8 mmol/L (3-11); Aspartate Aminotrans (AST/SGOT 22 U/L (12-37); Bilirubin, Total 0.5 mg/dL (0.1-1.0); Blood Urea Nitrogen 12 mg/dL (8-24); Bun/Creatinine Ratio 12.2 (12.0-20.0); CO2, Blood 25 mmol/L (21-32); Calcium, Blood 8.2 mg/dL (8.5-10.1); Chloride, Blood 113 mmol/L (98-108); Creatinine, Blood 0.98 mg/dL (0.40-1.00); Globulin, Blood 2.7 g/dL (2.2-4.0); Glomerular Filtration Rate 62 (60-); Glucose, Blood 80 mg/dL (70-99); Phosphorus, Blood 3.1 mg/dL (2.5-4.9); Potassium, Blood 3.8 mmol/L (3.5-5.5); Sodium, Blood 142 mmol/L (136-145)
[2023-06-27 00:15] LABS: International Normalized Ratio 0.95; Prothrombin Time Results 10.2 Sec (9.7-11.5)
[2023-06-27] MEDS ORDERED: PROP60 PO (01:14)
[2023-06-27] MEDS ORDERED: TOPI100 PO (01:16)
[2023-06-27] MEDS ORDERED: TOPI50 PO (01:17)
[2023-06-27] MEDS ORDERED: TROSPIUM CHLORI20 MG PO (01:18)
[2023-06-27] MEDS ORDERED: Sanctura20 MG PO (01:20)
[2023-06-27 04:02] LABS: Source, Urine Clean Catch
[2023-06-27 04:23] LABS: Bilirubin, Urine Neg (Neg); Blood, Urine Neg (Neg); Glucose Qualitative, Urine Neg (Neg); Ketones, Urine Neg (Neg); Leukocyte Esterase, Urine 3+ (Neg); Nitrite, Urine Pos (Neg); Protein, Urine Neg (Neg); Urobilinogen, Urine NORM (Normal)
[2023-06-27 05:17] LABS: Appearance, Urine Hazy (Clear); Color, Urine Pale Yellow (P-Yellow)
[2023-06-27 05:18] LABS: Amorphous Light (0-Heavy); Bacteria Many /hpf; Red Blood Cells, Urine 0-2 /hpf (0-2); Squamous Epithelial Cells Few /hpf (Few)
[2023-06-27 12:00] VITALS: BP 95/55
[2023-06-27] MEDS ORDERED: CEFP200 PO (12:00)
[2023-06-27] MEDS ORDERED: Cefpodoxime Proxetil 200 MG Tab PO ONE (12:15)
[2023-06-27] MEDS ORDERED: Acetaminophen 500 MG Tab PO ONE (12:25)
== END 2023-06-27 13:08 | disposition home or self-care (01) ==
LOC: ER 20:44
PROVIDERS: Emergency Medicine
DX: M25.511 Pain in right shoulder (principal); M25.551 Pain in right hip; Z02.2 Encounter for examination for admission to residential institution; R29.6 Repeated falls; D64.9 Anemia, unspecified; Z88.8 Allergy status to other drugs, medicaments and biological substances; Z88.1 Allergy status to other antibiotic agents; Z91.030 Bee allergy status; Z79.899 Other long term (current) drug therapy; I12.9 Hypertensive chronic kidney disease with stage 1 through stage 4 chronic kidney disease, or unspecified chronic kidney disease; N18.30 Chronic kidney disease, stage 3 unspecified; J45.909 Unspecified asthma, uncomplicated; E11.22 Type 2 diabetes mellitus with diabetic chronic kidney disease; E03.9 Hypothyroidism, unspecified; I25.2 Old myocardial infarction
CPT/HCPCS: 70450; 71045; 73030; 73502; 80053; 81001; 82607; 82746; 83735; 84100; 84443; 85025; 85610; 85730; 87077; 87086; 87186; 93005; 93010; 99285-25; A9270; G0480

== ENCOUNTER 2023-08-08 16:31 | Emergency (ER) | payer OTHER ==
[~2023-08-08] VITALS: Ht 172.7 cm; Wt 76.2 kg
[~2023-08-08 16:31] MED LIST changes: +CEFP200 PO; +PROP60 PO; +TOPI100 PO; +TROSPIUM CHLORI20 MG PO
[2023-08-08 16:34] VITALS: BP 113/58
[2023-08-08] MEDS ORDERED: Pregabalin 75 MG Cap PO ONE (17:05)
[2023-08-08] MEDS ORDERED: Propranolol HCL 60 MG CAPCR PO ONE (17:10)
[2023-08-08] MEDS ORDERED: Synthroid88 MCG PO (17:13)
[2023-08-08] MEDS ORDERED: PROP60 PO (17:13)
[2023-08-08] MEDS ORDERED: PREG75 PO (17:13)
== END 2023-08-08 17:58 | disposition home or self-care (01) ==
LOC: ER 16:31
DX: Z76.0 Encounter for issue of repeat prescription (principal); Z88.8 Allergy status to other drugs, medicaments and biological substances; Z88.1 Allergy status to other antibiotic agents; Z91.030 Bee allergy status; Z79.899 Other long term (current) drug therapy; I12.9 Hypertensive chronic kidney disease with stage 1 through stage 4 chronic kidney disease, or unspecified chronic kidney disease; N18.30 Chronic kidney disease, stage 3 unspecified; E11.22 Type 2 diabetes mellitus with diabetic chronic kidney disease; E03.9 Hypothyroidism, unspecified
CPT/HCPCS: 99283; A9270

== ENCOUNTER 2023-12-24 12:30 | Emergency (ER) | payer OTHER, MEDICARE ==
[~2023-12-24] VITALS: Ht 172.7 cm; Wt 70.3 kg
[~2023-12-24 12:30] MED LIST changes: +PREG75 PO; +Synthroid88 MCG PO; +Vitamin D1000 UNI1 PO; -Vitamin D2000 UNIT
[2023-12-24] MEDS ORDERED: NS 1,000 ML IV SCH (14:05)
[2023-12-24 14:37] LABS: BASOPHILS ABSOLUTE AUTO 0.03 K/mm3 (0.00-0.23); BASOPHILS PERCENT AUTO 1 % (0-2); EOSINOPHILS ABSOLUTE AUTO 0.11 K/mm3 (0.00-0.68); EOSINOPHILS PERCENT AUTO 2 % (0-6); Hematocrit 31.3 % (33.0-51.0); Hemoglobin 9.8 g/dL (11.5-16.0); IMMATURE GRAN ABSOLUTE AUTO 0.01 K/mm3 (0.00-0.10); IMMATURE GRAN PERCENT AUTO 0 % (0-1); LYMPHOCYTES ABSOLUTE AUTO 1.73 K/mm3 (0.84-5.20); LYMPHOCYTES PERCENT AUTO 32 % (21-46); MONOCYTES ABSOLUTE AUTO 0.46 K/mm3 (0.16-1.47); MONOCYTES PERCENT AUTO 8 % (4-13); Mean Corpuscular HGB 30.1 pg (26.0-34.0); Mean Corpuscular HGB Conc 31.3 g/dL (31.5-36.5); Mean Corpuscular Volume 96 fL (80-100); NEUTROPHILS ABSOLUTE AUTO 3.12 K/mm3 (1.96-9.15); NEUTROPHILS PERCENT AUTO 57 % (41-73); Platelet Count 254 K/mm3 (150-400); RDW Coefficient Variation 15.3 % (11.7-14.2); Red Blood Cell Count 3.26 M/mm3 (3.80-5.20); White Blood Cell Count 5.46 K/mm3 (4.00-11.30)
[2023-12-24 14:49] LABS: Alanine Aminotransfer (ALT/SGP 30 U/L (12-78); Albumin, Blood 3.6 g/dL (3.4-5.0); Albumin/Globulin Ratio 1.2 (0.8-1.8); Alk Phos 93 U/L (50-136); Anion Gap 6 mmol/L (3-11); Aspartate Aminotrans (AST/SGOT 33 U/L (12-37); Bilirubin, Total 0.3 mg/dL (0.1-1.0); Blood Urea Nitrogen 18 mg/dL (8-24); Bun/Creatinine Ratio 16.5 (12.0-20.0); CO2, Blood 26 mmol/L (21-32); Calcium, Blood 8.9 mg/dL (8.5-10.1); Chloride, Blood 114 mmol/L (98-108); Creatinine, Blood 1.09 mg/dL (0.40-1.00); Ethanol (Alcohol), Blood, Med <3 mg/dL; Globulin, Blood 2.9 g/dL (2.2-4.0); Glomerular Filtration Rate 54 (60-); Glucose, Blood 88 mg/dL (70-99); Potassium, Blood 4.1 mmol/L (3.5-5.5); Sodium, Blood 142 mmol/L (136-145); Total Protein, Blood 6.5 g/dL (6.4-8.2)
[2023-12-24 15:43] LABS: International Normalized Ratio 0.96; Prothrombin Time Results 10.3 Sec (9.7-11.5)
[2023-12-24] MEDS ORDERED: Ketorolac Tromethamine 30mg Vial IV ONE (15:55)
[2023-12-24 17:45] VITALS: BP 122/68
== END 2023-12-24 17:50 | disposition home or self-care (01) ==
LOC: ER 12:30
PROVIDERS: Student in an Organized Health Care Education/Training Program
DX: S20.219A Contusion of unspecified front wall of thorax, initial encounter (principal); S80.01XA Contusion of right knee, initial encounter; S83.91XA Sprain of unspecified site of right knee, initial encounter; V89.2XXA Person injured in unspecified motor-vehicle accident, traffic, initial encounter; E86.1 Hypovolemia; I95.9 Hypotension, unspecified; I12.9 Hypertensive chronic kidney disease with stage 1 through stage 4 chronic kidney disease, or unspecified chronic kidney disease; E11.22 Type 2 diabetes mellitus with diabetic chronic kidney disease; N18.30 Chronic kidney disease, stage 3 unspecified; J45.909 Unspecified asthma, uncomplicated; I25.2 Old myocardial infarction; E03.9 Hypothyroidism, unspecified; E66.9 Obesity, unspecified; Z68.23 Body mass index [BMI] 23.0-23.9, adult; Z88.1 Allergy status to other antibiotic agents; Z88.8 Allergy status to other drugs, medicaments and biological substances; Z91.030 Bee allergy status; Z79.899 Other long term (current) drug therapy; Z79.890 Hormone replacement therapy
CPT/HCPCS: 70450; 71260; 72125; 73562-RT; 80053; 80320; 84484; 85025; 85610; 93005; 93010; 96361; 96374-59; 99285-25; J1885; J7030; Q9967

== ENCOUNTER 2024-02-20 16:41 | Observation (INO) | payer MEDICARE, OTHER ==
[~2024-02-20] VITALS: Ht 172.7 cm; Wt 70.5 kg
[2024-02-20] MEDS ORDERED: Ondansetron HCl 2 MG / ML 2ML Vial IV ONE (19:20)
[2024-02-20] MEDS ORDERED: Morphine Sulfate 4 MG/1 ML Injection IV ONE (19:20)
[2024-02-20 19:53] LABS: BASOPHILS ABSOLUTE AUTO 0.03 K/mm3 (0.00-0.23); BASOPHILS PERCENT AUTO 1 % (0-2); EOSINOPHILS ABSOLUTE AUTO 0.06 K/mm3 (0.00-0.68); EOSINOPHILS PERCENT AUTO 1 % (0-6); Hematocrit 30.1 % (33.0-51.0); Hemoglobin 9.1 g/dL (11.5-16.0); IMMATURE GRAN ABSOLUTE AUTO 0.01 K/mm3 (0.00-0.10); IMMATURE GRAN PERCENT AUTO 0 % (0-1); LYMPHOCYTES PERCENT AUTO 27 % (21-46); MONOCYTES PERCENT AUTO 8 % (4-13); Mean Corpuscular HGB 27.2 pg (26.0-34.0); Mean Corpuscular HGB Conc 30.2 g/dL (31.5-36.5); Mean Corpuscular Volume 90 fL (80-100); Mean Platelet Volume 11.2 fL (9.1-12.4); NEUTROPHILS ABSOLUTE AUTO 3.31 K/mm3 (1.96-9.15); NEUTROPHILS PERCENT AUTO 63 % (41-73); Platelet Count 223 K/mm3 (150-400); RDW Coefficient Variation 14.6 % (11.7-14.2); Red Blood Cell Count 3.35 M/mm3 (3.80-5.20); White Blood Cell Count 5.21 K/mm3 (4.00-11.30)
[2024-02-20 20:10] LABS: Albumin, Blood 3.3 g/dL (3.4-5.0); Albumin/Globulin Ratio 1.1 (0.8-1.8); Bilirubin, Total 0.5 mg/dL (0.1-1.0); Calcium, Blood 8.5 mg/dL (8.5-10.1); Creatinine, Blood 1.09 mg/dL (0.40-1.00); Globulin, Blood 2.9 g/dL (2.2-4.0); Magnesium, Blood 2.4 mg/dL (1.6-2.4); Potassium, Blood 3.8 mmol/L (3.5-5.5); Total Protein, Blood 6.2 g/dL (6.4-8.2)
[2024-02-21] MEDS ORDERED: Lactated Ringer's 1,000 ML IV ONE (00:45)
[2024-02-21] MEDS ORDERED: FLU VACC TS2024-25(6MOS UP)/PF 45 MCG/0.5 ML SYRINGE IM ONE (03:05)
[2024-02-21] MEDS ORDERED: Acetaminophen 325 MG TABLET PO PRN (03:10)
[2024-02-21] MEDS ORDERED: Ondansetron HCl 2 MG / ML 2ML Vial IV PRN (03:10)
[2024-02-21] MEDS ORDERED: Lactated Ringer's 1,000 ML IV SCH (04:00)
[2024-02-21 04:24] VITALS: BP 114/66
[2024-02-21 05:45] LABS: BASOPHILS ABSOLUTE AUTO 0.02 K/mm3 (0.00-0.23); BASOPHILS PERCENT AUTO 1 % (0-2); EOSINOPHILS ABSOLUTE AUTO 0.13 K/mm3 (0.00-0.68); EOSINOPHILS PERCENT AUTO 3 % (0-6); Hematocrit 27.1 % (33.0-51.0); Hemoglobin 8.3 g/dL (11.5-16.0); IMMATURE GRAN ABSOLUTE AUTO 0.03 K/mm3 (0.00-0.10); IMMATURE GRAN PERCENT AUTO 1 % (0-1); LYMPHOCYTES ABSOLUTE AUTO 1.55 K/mm3 (0.84-5.20); LYMPHOCYTES PERCENT AUTO 39 % (21-46); MONOCYTES ABSOLUTE AUTO 0.41 K/mm3 (0.16-1.47); MONOCYTES PERCENT AUTO 10 % (4-13); Mean Corpuscular HGB 27.4 pg (26.0-34.0); Mean Corpuscular HGB Conc 30.6 g/dL (31.5-36.5); Mean Corpuscular Volume 89 fL (80-100); Mean Platelet Volume 11.2 fL (9.1-12.4); NEUTROPHILS ABSOLUTE AUTO 1.82 K/mm3 (1.96-9.15); NEUTROPHILS PERCENT AUTO 46 % (41-73); Platelet Count 210 K/mm3 (150-400); RDW Coefficient Variation 14.6 % (11.7-14.2); RDW Standard Deviation 47.6 fL (35.1-46.3); Red Blood Cell Count 3.03 M/mm3 (3.80-5.20); White Blood Cell Count 3.96 K/mm3 (4.00-11.30)
--- NOTE | 2024-02-21 05:47 | NUR ---
SHIFT SUMMARY NOC PT A/O X 4. PLEASANT AND COOPERATIVE WICH CARE. BP STABLE. PT HAS ORTHOSTATIC VS ORDERED FOR AM AN PM TODAY. FIRST TO BE DONE ONCOMING DAY SHIFT AND SECOND DURING NOC SHIFT VS. PT ABLE TO AMBULATE WITH 1PA TO [facility] W/O C/O OF DIZZYNESS OR FEELING LIGHT HEADED. PT IS CONTINENT. PT HAS SIGNIFICANT BRUISING ON COCCYX FROM MULTIPLE RECENT FALLS AT HOME. PT REPORTS WT LOSS OF >70LBS OVER PAST 6 MONTHS. PT ALSO HAS EQUIPMENT SPECIALIST CONSULT ORDERED DUE TO CONDITION OF HOME AND PER ED REPORT PT HOME WILL BE CONDEMNED IN NEXT 10 DAYS AND HAS POWER/WATER SHUT OFF. PT HAS LR INFUSIN @ 125 ML/HR X 2 BAGS. PT CURRENTLY RESTING WITH BED IN LOWEST POSITION, AND CALL LIGHT WITHIN REACH.
[2024-02-21 06:17] LABS: Albumin, Blood 2.8 g/dL (3.4-5.0); Bilirubin, Total 0.4 mg/dL (0.1-1.0); Calcium, Blood 8.5 mg/dL (8.5-10.1); Creatinine, Blood 1.08 mg/dL (0.40-1.00); Globulin, Blood 2.9 g/dL (2.2-4.0); Potassium, Blood 3.7 mmol/L (3.5-5.5); Total Protein, Blood 5.7 g/dL (6.4-8.2)
[2024-02-21 07:13] VITALS: BP 100/55
[2024-02-21] MEDS ORDERED: Propranolol HCL 60 MG CAPCR PO SCH (09:00)
[2024-02-21] MEDS ORDERED: Atorvastatin 40 MG Tab PO SCH (09:00)
[2024-02-21] MEDS ORDERED: Levothyroxine Sodium 0.088 MG Tab PO SCH (09:00)
[2024-02-21] MEDS ORDERED: Omeprazole 20 MG CapCR PO SCH (09:00)
[2024-02-21] MEDS ORDERED: DULoxetine HCL 60 MG Capsule DR PO SCH (09:00)
[2024-02-21] MEDS ORDERED: Allopurinol 300 MG Tab PO SCH (09:00)
[2024-02-21] MEDS ORDERED: Cholecalciferol 1000 Unit Tablet (=25MCG) PO SCH (09:00)
[2024-02-21] MEDS ORDERED: buPROPion HCL 150 MG TAB.SR.12H PO SCH (09:00)
[2024-02-21] MEDS ORDERED: Enoxaparin 40 MG/0.4 ML SYR SC SCH (09:00)
[2024-02-21] MEDS ORDERED: Topiramate 100 MG Tab PO SCH (09:00)
[2024-02-21] MEDS ORDERED: Pregabalin 75 MG Cap PO SCH (09:00)
[2024-02-21 12:11] LABS: Percent Saturation 7.9 % (15.0-50.0)
[2024-02-21] MEDS ORDERED: HYDROcodone 5-APAP 325 TAB PO PRN (13:20)
[2024-02-21 15:14] VITALS: BP 99/60
[2024-02-21] MEDS ORDERED: Trospium Chloride 20 MG Tab PO SCH (16:30)
[2024-02-21] MEDS ORDERED: FLU VACC TS2024-25(6MOS UP)/PF 45 MCG/0.5 ML SYRINGE IM SCH (18:00)
--- NOTE | 2024-02-21 19:06 | NUR ---
REPORT RECEIVED VERIFIED. UNEVENTFUL DAY, PT WAS UP WITH PHYSICAL T AND VINITA WELL, HAS CALL LIGHT WITHIN REACH AND IS ABLE TO MAKE NEEDS KNOWN. PAIN MANAGMENT IMPLEMENTED FOR NECK PAIN, cHRONIC. DRESSING CHANGED TO COCCXY AREA, NO BREAK DOWN NOTED BUT WAS PLACED FOR PROTECTION.
[2024-02-21 20:11] VITALS: BP 111/62
[2024-02-21] MEDS ORDERED: Calcium Carbonate 500 MG Tab Chew PO PRN (23:00)
[2024-02-22 03:46] VITALS: BP 117/66
[2024-02-22 03:51] VITALS: BP 84/63
[2024-02-22] MEDS ORDERED: Lactated Ringer's 500 ML IV SCH (04:10)
--- NOTE | 2024-02-22 04:35 | NUR ---
ORTHOSTATIC VITALS TAKEN AND LYING BP 117/66, SITTING 99/64, AND STANDING 83/63. PT REPORTED NO DIZZYNESS OR LIGHTHEADEDNESS. HOSPITALIST NOTIFIED AND ORDER GIVEN TO INFUSE 500 ML LR @ 125 ML/HR AND TO RECHECK ORTHOSTATIC VITALS WHEN INFUSION COMPLETE.
--- NOTE | 2024-02-22 04:55 | NUR ---
SHIFT SUMMARY NOC PT A/O X 4. PLEASANT AND COOPERATIVE WITH CARE. BP STABLE. PT DENIES DIZZYNESS OR FEELING LIGHT HEADED WHEN TRANSFERRING TO BSC. INFUSION OF 2L LR NOW COMPLETED. PT PO INTAKE IMPROVING. ORTHOSTATIC VS TAKEN IN AM LYING 117/66, SITTING 99/64, STANDING 83/63. HOSPITALIST NOTIFIED AND INFUSION OF 500 ML LR STARTED WITH RECHECK ORDER AFTER INFUSION COMPLETED. WHEN EMPTYING BSC PT URINE HAS STRONG ODOR TO IT, WILL PASS ALONG TO DAY SHIFT TO MONITOR FOR POSSIBLE UA. PT HAD C/O OF HEART BURN AND TUMS ORDERED. PT CURRENTLY RESTING WITH BED IN LOWEST POSITION, AND CALL LIGHT WITHIN REACH.
[2024-02-22] MEDS ORDERED: Levothyroxine Sodium 0.075 MG Tab PO SCH (06:00)
[2024-02-22 06:26] LABS: Hematocrit 29.9 % (33.0-51.0); Mean Corpuscular HGB 26.9 pg (26.0-34.0); Mean Corpuscular HGB Conc 30.1 g/dL (31.5-36.5); Mean Corpuscular Volume 89 fL (80-100); Mean Platelet Volume 11.7 fL (9.1-12.4); Platelet Count 200 K/mm3 (150-400); RDW Coefficient Variation 14.6 % (11.7-14.2); RDW Standard Deviation 46.9 fL (35.1-46.3); Red Blood Cell Count 3.35 M/mm3 (3.80-5.20); White Blood Cell Count 4.87 K/mm3 (4.00-11.30)
[2024-02-22 06:34] LABS: Bun/Creatinine Ratio 15.3 (12.0-20.0); Calcium, Blood 9.3 mg/dL (8.5-10.1); Creatinine, Blood 0.98 mg/dL (0.40-1.00)
[2024-02-22 07:23] VITALS: BP 131/69
[2024-02-22] MEDS ORDERED: Iron Dextran 50 MG / ML 2ML Vial IV ONE (08:10)
[2024-02-22] MEDS ORDERED: Propranolol HCL 60 MG CAPCR PO SCH (09:00)
[2024-02-22] MEDS ORDERED: Iron Dextran 975 MG in NS 250 ML IV ONE (09:00)
[2024-02-22 10:16] VITALS: BP 120/68
[2024-02-22] MEDS ORDERED: Propranolol HCL 20 MG TAB PO SCH (11:00)
[2024-02-22 11:32] VITALS: BP 93/55
[2024-02-22] MEDS ORDERED: DOCU100 PO (13:45)
[2024-02-22] MEDS ORDERED: HYDR1TAB94 PO (13:45)
--- NOTE | 2024-02-22 19:26 | NUR ---
SHIFT SUMMARY [facility] TO TRANSPORT PATIENT. A/O X4. C/O PAIN TO LOWER LEGS AND BACK, DECLINED PAIN MEDS. HARD SCRIPT SENT WITH PATIENT. DISCHARGE PACKET GIVEN AND REVIEWED, QUESTIONS ANSWERED, VERBALIZED UNDERSTANDING.
--- NOTE | 2024-02-22 21:19 | NUR ---
[facility] PICKED UP PT @ 1929. PT LEFT WITH ALL BELONGINGS IN POSSESSION.
== END 2024-02-22 19:32 | disposition home health service (06) ==
LOC: ER 16:41 → MEDS 16:42
PROVIDERS: Internal Medicine; Student in an Organized Health Care Education/Training Program; ADMIT Student in an Organized Health Care Education/Training Program
DX: I95.1 Orthostatic hypotension (principal); I12.9 Hypertensive chronic kidney disease with stage 1 through stage 4 chronic kidney disease, or unspecified chronic kidney disease; N18.30 Chronic kidney disease, stage 3 unspecified; E11.22 Type 2 diabetes mellitus with diabetic chronic kidney disease; D68.00 Von Willebrand disease, unspecified; D64.9 Anemia, unspecified; E03.9 Hypothyroidism, unspecified; J45.909 Unspecified asthma, uncomplicated; I25.2 Old myocardial infarction; Z88.1 Allergy status to other antibiotic agents; Z88.8 Allergy status to other drugs, medicaments and biological substances; Z79.890 Hormone replacement therapy; Z79.899 Other long term (current) drug therapy
CPT/HCPCS: 36415; 70450; 72125; 73030; 73502; 80048; 80053; 82728; 82947; 83540; 83550; 83735; 84443; 85025; 85027; 90656; 96361; 96374; 96375; 97110; 97162; 97530; 99285-25; A9270; G0008; G0378; J1750; J2270; J2405; J7050; J7120

== ENCOUNTER 2024-11-01 13:39 | Inpatient (IN) | payer OTHER, MEDICARE ==
[~2024-11-01] VITALS: Ht 175.3 cm; Wt 64.5 kg
[~2024-11-01 13:39] MED LIST changes: +ALBU90OI INH; -ALLO100 PO; +ALLO300 PO; +BUME1 PO; +Budeprion Xl300 MG PO; +Estrace Vagin42.5 GM VAG; +Inderal40 MG PO; -TOPI100 PO
[2024-11-01] MEDS ORDERED: Morphine Sulfate 4 MG/1 ML Injection IV ONE (14:20)
[2024-11-01] MEDS ORDERED: HYDROmorphone HCl/Pf 1MG SYR IV ONE ×2 (14:50→16:50)
[2024-11-01] MEDS ORDERED: Ondansetron HCl 2 MG / ML 2ML Vial IV ONE (14:50)
[2024-11-01 17:04] LABS: BASOPHILS ABSOLUTE AUTO 0.02 K/mm3 (0.00-0.23); BASOPHILS PERCENT AUTO 0 % (0-2); EOSINOPHILS ABSOLUTE AUTO 0.01 K/mm3 (0.00-0.68); EOSINOPHILS PERCENT AUTO 0 % (0-6); Hematocrit 40.2 % (33.0-51.0); Hemoglobin 12.9 g/dL (11.5-16.0); IMMATURE GRAN ABSOLUTE AUTO 0.03 K/mm3 (0.00-0.10); IMMATURE GRAN PERCENT AUTO 0 % (0-1); LYMPHOCYTES ABSOLUTE AUTO 1.04 K/mm3 (0.84-5.20); LYMPHOCYTES PERCENT AUTO 14 % (21-46); MONOCYTES ABSOLUTE AUTO 0.49 K/mm3 (0.16-1.47); MONOCYTES PERCENT AUTO 7 % (4-13); Mean Corpuscular HGB Conc 32.1 g/dL (31.5-36.5); Mean Corpuscular Volume 100 fL (80-100); NEUTROPHILS ABSOLUTE AUTO 5.77 K/mm3 (1.96-9.15); NEUTROPHILS PERCENT AUTO 78 % (41-73); NRBC ABSOLUTE 0.00 K/mm3 (0.00-0.02); NRBC Auto 0.0 /100 WBC (0.0-0.2); Platelet Count 166 K/mm3 (150-400); RDW Coefficient Variation 13.4 % (11.7-14.2); RDW Standard Deviation 49.5 fL (35.1-46.3)
[2024-11-01 17:31] LABS: Alanine Aminotransfer (ALT/SGP 64.0 U/L (12-78); Albumin, Blood 4.0 g/dL (3.4-5.0); Albumin/Globulin Ratio 1.4 (0.8-1.8); Anion Gap 7.0 mmol/L (3-11); Aspartate Aminotrans (AST/SGOT 56.0 U/L (12-37); Bilirubin, Total 0.5 mg/dL (0.1-1.0); Blood Urea Nitrogen 18.0 mg/dL (8-24); CO2, Blood 25.0 mmol/L (21-32); Calcium, Blood 8.9 mg/dL (8.5-10.1); Chloride, Blood 109.0 mmol/L (98-108); Creatinine, Blood 0.82 mg/dL (0.40-1.00); Globulin, Blood 2.9 g/dL (2.2-4.0); Glucose, Blood 99.0 mg/dL (70-99); Potassium, Blood 3.8 mmol/L (3.5-5.5); Sodium, Blood 137.0 mmol/L (136-145); Total Protein, Blood 6.9 g/dL (6.4-8.2)
[2024-11-01] MEDS ORDERED: NS 1,000 ML IV SCH (18:20)
[2024-11-01] MEDS ORDERED: Albuterol 2.5 MG/3 ML VIAL INH PRN (18:20)
[2024-11-01] MEDS ORDERED: FentaNYL Citrate 50 MCG/ML 2 ML Injection IV PRN (18:25)
[2024-11-01] MEDS ORDERED: OxyCODONE 5 mg/Acetamin 325 mg TABLET PO PRN (18:25)
[2024-11-01] MEDS ORDERED: Ondansetron HCl 2 MG / ML 2ML Vial IV PRN (18:25)
[2024-11-01 19:04] LABS: pH Blood Venous 7.12 (7.34-7.37)
[2024-11-01] MEDS ORDERED: Naloxone HCl 0.4MG / ML 1ML Vial IV PRN (19:15)
[2024-11-01 20:34] LABS: pH Blood Venous 7.21 (7.34-7.37)
[2024-11-01] MEDS ORDERED: Ketorolac Tromethamine 30mg Vial IV ONE (21:00)
[2024-11-01 22:47] VITALS: BP 125/84
[2024-11-01] MEDS ORDERED: Toviaz8 MG PO (22:54)
[2024-11-01] MEDS ORDERED: VITAMIN B12500 MCG PO (22:58)
[2024-11-01] MEDS ORDERED: THERA-D2000 UNIT PO (22:59)
[2024-11-01] MEDS ORDERED: PREG300 PO (23:13)
[2024-11-01] MEDS ORDERED: PREGABALIN PO (23:15)
[2024-11-02] VITALS (7 sets, daily range): BP systolic 92–125; BP diastolic 53–73
--- NOTE | 2024-11-02 04:25 | NUR ---
SHIFT SUMMARY: PATIENT CAME IN ON 11/01/2024 AT 2230 FROM ER. PATIENT WAS SLOW TO RESPOND DUE TO BEING [place] AND WAS GIVEN A LARGE AMOUNT OF NARCOTICS FROM EMS AND ER. HOWEVER, PATIENT IS A&OX4. VITALS ARE STABLE AND IS CURRENTLY ON 3-4L NC WITH SPO2 >90%, AND SHE HAS DENIED SHORTNESS OF BREATH THROUGHOUT SHIFT. PATIENT WAS DESATING TO MID-80'S SPO2 PRIOR TO BEING PLACED ON 3-4L NC. PATIENT REPORTS PAIN IN BOTH HER LEFT SHOULDER AND ANKLE BUT PATIENT HAS BEEN TOO DROWSY TO GIVE IV OR PO PAIN MEDICATIONS AT THIS TIME. LEFT SHOULDER IS SUPPORTED WITH A PILLOW - OFFERED A SLING FOR THE PATIENT BUT SHE DECLINED AT THIS TIME. LEFT ANKLE THAT IS SPLINTED AND WRAPPED WITH LLOYD WRAP IS C/D/I WITH NO DECREASE IN BLE SENSATION - IS ALSO ELEVATED ON PILLOWS. NPO SINCE MIDNIGHT FOR SURGERY LATER TODAY. IV NS FLUIDS RUNNING AT 100ML/HR. JC IS DRAINING TO GRAVITY WITH YELLOW/SEDIMENT/ODOROUS URINE OUTPUT. PATIENT IS LAYING IN BED WITH CALL LIGHT IN REACH. PATIENT CALLS APPROPRIATELY AND IS ABLE TO MAKE HER NEEDS KNOWN.
[2024-11-02 05:11] LABS: Hematocrit 33.8 % (33.0-51.0); Hemoglobin 11.0 g/dL (11.5-16.0); Mean Corpuscular HGB Conc 32.5 g/dL (31.5-36.5); Mean Corpuscular Volume 97 fL (80-100); NRBC ABSOLUTE 0.00 K/mm3 (0.00-0.02); NRBC Auto 0.0 /100 WBC (0.0-0.2); Platelet Count 146 K/mm3 (150-400); RDW Coefficient Variation 13.3 % (11.7-14.2); RDW Standard Deviation 47.8 fL (35.1-46.3)
[2024-11-02 05:12] LABS: pH Blood Venous 7.35 (7.34-7.37)
[2024-11-02 05:35] LABS: Anion Gap 7.0 mmol/L (3-11); Blood Urea Nitrogen 15.0 mg/dL (8-24); CO2, Blood 25.0 mmol/L (21-32); Calcium, Blood 7.9 mg/dL (8.5-10.1); Chloride, Blood 110.0 mmol/L (98-108); Creatinine, Blood 0.73 mg/dL (0.40-1.00); Glucose, Blood 102.0 mg/dL (70-99); Potassium, Blood 3.9 mmol/L (3.5-5.5); Sodium, Blood 138.0 mmol/L (136-145)
[2024-11-02 05:46] LABS: Source, Urine Foley catheter
[2024-11-02 05:56] LABS: Bilirubin, Urine Neg (Neg); Color, Urine Yellow (P-Yellow); Glucose Qualitative, Urine Neg (Neg); Ketones, Urine Neg (Neg); Leukocyte Esterase, Urine 2+ (Neg); Protein, Urine 1+ (Neg); Specific Gravity, Urine 1.010 (1.003-1.022); Urobilinogen, Urine NORM (Normal)
[2024-11-02 05:57] LABS: Prothrombin Time Results 10.9 Sec (9.7-11.5)
[2024-11-02 06:06] LABS: Red Blood Cells, Urine 0-2 /hpf (0-2)
[2024-11-02 06:26] LABS: SARS-Cov-2 (COVID-19) PCR, MMC NEGATIVE (NEGATIVE)
--- NOTE | 2024-11-02 10:26 | NUR ---
PT AWAKE AND ALERT THIS AM RATING PAIN "45/10". 25 MCG FENTANYL ADMINISTERED AND PT TOLERATED WELL - ABLE TO REMAIN AWAKE AND REPORT NEEDS. NO RESPIRATORY DISTRESS NOTED. NO LONGER NPO - PLAN FOR SURGERY ON LEFT ANKLE ON 11/03/24. PT ABLE TO SWALLOW WATER WITHOUT DIFFICULTY. PERCOCET ADMINISTERED - NO S/SX DYSPHAGIA. PT REPOSITIONED, CALL LIGHT WITHIN REACH AND BED IN LOWEST POSITION. SLING APPLIED TO LUE.
[2024-11-02] MEDS ORDERED: BUPROPION XL150 M1 PO (11:40)
[2024-11-02] MEDS ORDERED: LEVSOD88 PO (11:42)
[2024-11-02] MEDS ORDERED: LEVSOD75 PO (11:43)
[2024-11-02] MEDS ORDERED: PREG75 PO (11:44)
[2024-11-02] MEDS ORDERED: FOLI1 PO (11:45)
[2024-11-02] MEDS ORDERED: BUME2 PO (11:45)
[2024-11-02] MEDS ORDERED: ALBU90OI INH (11:47)
[2024-11-02] MEDS ORDERED: B-12500 MC2 PO (11:47)
[2024-11-02] MEDS ORDERED: Estrace Vagin42.5 GM VAG (11:47)
--- NOTE | 2024-11-02 12:16 | NUR ---
NO ACUTE CHANGES SO FAR THIS SHIFT - PLAN FOR SURGERY TOMORROW, NPO AT MIDNIGHT. PT CURRENTLY SITTING UP EATING LUNCH WITHOUT DIFFICULTY. LLE FLOATED AT HEART LEVEL, PT REPORTS FEELING IN BLE, ABLE TO WIGGLE TOES WHEN ASKED. GOOD CAP REFILL ON ALL EXTREMITIES. SLING IN PLACE ON LUE. PT REPORTS PERCOCET MORE EFFECTIVE IN MANAGING PAIN ALONG WITH SUPPORT FROM PILLOWS, SLING, AND HEAT APPLICATION. JC PATENT AND DRAINING TO GRAVITY. TELE MONITORING CONTINUES. VITALS STABLE. BED IN LOWEST POSITION AND CALL LIGHT WITHIN REACH.
--- NOTE | 2024-11-02 13:03 | NUR ---
TELE MONITOR REMOVED PER ORDERS - PLAN TO TRANSFER TO SURGICAL, AWAITING ROOM ASSIGNMENT.
--- NOTE | 2024-11-02 13:39 | NUR ---
REPORT PROVIDED TO OFFICE HELPER CLERICALSANTHOSH ON SURGICAL UNIT. PT TRASNFERRED - ALL BELONINGS TAKEN WITH PT. PT TOLERATED TRANSFER WELL.
--- NOTE | 2024-11-02 13:58 | NUR ---
PT TO ROOM 218. RECENTLY MEDICATED FOR PAIN. STIRRUP ORTHOGLASS SPLINT LLE. CMS INTACT. L ARM IN SLING. IV INFUSING PER ORDER. PT ORIENTED TO ROOM. PRESENTLY DENIES COMPLAINTS. WILL CONTINUE TO MONITOR.
--- NOTE | 2024-11-02 17:23 | NUR ---
Shift summary pt resting. awaiting surgery tomorrow. LLE splinted in stirrup orthoglass splint secured with darian wrap. denies complaints. Will continue to monitor.
[2024-11-02] MEDS ORDERED: OxyCODONE 5 mg/Acetamin 325 mg TABLET PO PRN (17:49)
[2024-11-03] VITALS (20 sets, daily range): BP systolic 85–126; BP diastolic 58–74
[2024-11-03] MEDS ORDERED: CeFAZolin Sodium 2,000 MG in NS 100 ML IV SCH ×2 (00:01→18:00)
[2024-11-03] MEDS ORDERED: Tranexamic Acid 100 ML IV PRN (00:01)
--- NOTE | 2024-11-03 04:01 | NUR ---
SHIFT SUMMARY HELGA WAS ALERT AND FULLY ORIENTED ON ASSESSMENT. PAIN MODERATELY WELL CONTROLLED TO SHOULDER AND ANKLE. DRESSINGS C/D/I. CIRCULATION AND SENSATION TO EXTS INTACT. JC IN PLACE DRAINING TO GRAVITY. PT KEPT NPO FROM MIDNIGHT FOR ORIF ON DAY SHIFT. SHOULDER SLING IN PLACE. NO ACUTE EVENTS TONIGHT.
[2024-11-03 06:58] LABS: BASOPHILS ABSOLUTE AUTO 0.01 K/mm3 (0.00-0.23); BASOPHILS PERCENT AUTO 0 % (0-2); EOSINOPHILS ABSOLUTE AUTO 0.07 K/mm3 (0.00-0.68); EOSINOPHILS PERCENT AUTO 1 % (0-6); Hematocrit 34.4 % (33.0-51.0); Hemoglobin 10.9 g/dL (11.5-16.0); IMMATURE GRAN ABSOLUTE AUTO 0.01 K/mm3 (0.00-0.10); IMMATURE GRAN PERCENT AUTO 0 % (0-1); LYMPHOCYTES ABSOLUTE AUTO 1.49 K/mm3 (0.84-5.20); LYMPHOCYTES PERCENT AUTO 29 % (21-46); MONOCYTES ABSOLUTE AUTO 0.57 K/mm3 (0.16-1.47); MONOCYTES PERCENT AUTO 11 % (4-13); Mean Corpuscular HGB Conc 31.7 g/dL (31.5-36.5); Mean Corpuscular Volume 100 fL (80-100); NEUTROPHILS ABSOLUTE AUTO 2.93 K/mm3 (1.96-9.15); NEUTROPHILS PERCENT AUTO 58 % (41-73); NRBC ABSOLUTE 0.00 K/mm3 (0.00-0.02); NRBC Auto 0.0 /100 WBC (0.0-0.2); Platelet Count 127 K/mm3 (150-400); RDW Coefficient Variation 13.5 % (11.7-14.2); RDW Standard Deviation 50.0 fL (35.1-46.3)
[2024-11-03 07:07] LABS: Anion Gap 6.0 mmol/L (3-11); Blood Urea Nitrogen 12.0 mg/dL (8-24); CO2, Blood 24.0 mmol/L (21-32); Calcium, Blood 7.8 mg/dL (8.5-10.1); Chloride, Blood 115.0 mmol/L (98-108); Creatinine, Blood 0.36 mg/dL (0.40-1.00); Glucose, Blood 98.0 mg/dL (70-99); Potassium, Blood 3.6 mmol/L (3.5-5.5); Sodium, Blood 141.0 mmol/L (136-145)
[2024-11-03] MEDS ORDERED: Folic Acid 1 MG TAB PO SCH (09:00)
[2024-11-03] MEDS ORDERED: Cholecalciferol 1000 Unit Tablet (=25MCG) PO SCH (09:00)
[2024-11-03] MEDS ORDERED: DULoxetine HCL 60 MG Capsule DR PO SCH (09:00)
[2024-11-03] MEDS ORDERED: FentaNYL Citrate 50 MCG/ML 2 ML Injection ONE (11:46)
[2024-11-03] MEDS ORDERED: Midazolam HCl 1MG / ML 2ML Vial ONE (11:46)
[2024-11-03] MEDS ORDERED: Bupivacaine 0.5% HCl 5 MG/ML 30MLVIAL ONE (11:47)
--- NOTE | 2024-11-03 11:57 | NUR ---
LLE Block timeout performed with Mio @8702 start: 1204 End: 1221 Pt tolerated procedure well, O2 and 3-lead in place t/o.
[2024-11-03] MEDS ORDERED: Ondansetron HCl 2 MG / ML 2ML Vial IV PRN ×2 (12:45→13:15)
[2024-11-03] MEDS ORDERED: HYDROmorphone HCl/Pf 1MG SYR IV PRN ×3 (12:45→13:20)
[2024-11-03] MEDS ORDERED: Magnesium Hydroxide Conc 10 ML UDC PO PRN (12:50)
[2024-11-03] MEDS ORDERED: Naloxone HCl 0.4MG / ML 1ML Vial IV PRN (12:55)
[2024-11-03] MEDS ORDERED: FentaNYL Citrate 50 MCG/ML 2 ML Injection IV PRN ×2 (13:20→13:25)
[2024-11-03] MEDS ORDERED: ePHEDrine Sulfate 50 MG/ML 1ML Injection ONE (13:20)
[2024-11-03] MEDS ORDERED: Ondansetron HCl 2 MG / ML 2ML Vial ONE (14:15)
[2024-11-03] MEDS ORDERED: Dexamethasone Sod Phos 10 MG/ML 1ML VIAL ONE (14:15)
[2024-11-03] MEDS ORDERED: Ketorolac Tromethamine 30mg Vial ONE (14:31)
--- NOTE | 2024-11-03 16:02 | NUR ---
RECEIVED PT FROM OR@4748 AXO4. VSS. BLOCK STILL IN PLACE TO L LEG - PT UNABLE TO WIGGLE TOES AND DENIES SENSATION TO L LEG CURRENTLY. PT IN SEVERE PAIN TO L SHOULDER - MEDICATED PER EMAR. PT RESTING CURRENTLY, CONTINOUS SPO2 IN PLACE.
--- NOTE | 2024-11-03 16:57 | NUR ---
SUMMARY ASSUMED CARE OF PT @0700. AXO4. VSS. PAINFUL TO L SHOULDER AND L ANKLE - MEDS ADMINISTERED. PT NPO PRE PROCEDURE EXCEPT MEDS. SEE POST OP NOTE. POST OP, PT RESTING AFTER PAIN MEDICATION ADMINITRATION. SPLINT CDI L LEG - BLOCK REMAINS. L ARM REMAINS IN SLING. VSS. ON RA. TOLERATING SMALL SIPS OF WATER. AWAITING RETURN OF MOVEMENT/SENSATION TO L LEG.
[2024-11-03] MEDS ORDERED: Estradiol Vag Cream 0.1 MG/G 42.5 GM Tube VAG SCH (21:00)
[2024-11-04] VITALS (10 sets, daily range): BP systolic 88–121; BP diastolic 53–66
--- NOTE | 2024-11-04 01:06 | NUR ---
CALL TO HOSPITALIST. CALL PLACED TO ADDRESS DUPLICATE ORDERS IN EMAR, AND SOFT BLOOD PRESSURES. PT HAS NO SIGNS OF BLEEDING AT SURGICAL SITE, PT A/O X4. DR. SCHULER TO REVIEW ORDERS AND PLACE NEW ORDERS.
[2024-11-04 01:31] LABS: Hematocrit 34.2 % (33.0-51.0); Hemoglobin 10.8 g/dL (11.5-16.0)
--- NOTE | 2024-11-04 04:19 | NUR ---
CALL TO HOSPITALIST. UPDATED PROVIDER ON H&H RESULTS AND SOFT BP AFTER ORDERED BOLUS AND MAINT FLUIDS. NURSE NOTIFY ORDER PLACED TO CALL PROVIDER FOR MAP LESS THAN 65. NO OTHER NEW ORDERS AT THIS TIME.
[2024-11-04 05:21] LABS: BASOPHILS ABSOLUTE AUTO 0.02 K/mm3 (0.00-0.23); BASOPHILS PERCENT AUTO 0 % (0-2); EOSINOPHILS ABSOLUTE AUTO 0.02 K/mm3 (0.00-0.68); EOSINOPHILS PERCENT AUTO 0 % (0-6); Hematocrit 30.0 % (33.0-51.0); Hemoglobin 9.6 g/dL (11.5-16.0); IMMATURE GRAN ABSOLUTE AUTO 0.01 K/mm3 (0.00-0.10); IMMATURE GRAN PERCENT AUTO 0 % (0-1); LYMPHOCYTES ABSOLUTE AUTO 0.97 K/mm3 (0.84-5.20); LYMPHOCYTES PERCENT AUTO 16 % (21-46); MONOCYTES ABSOLUTE AUTO 0.68 K/mm3 (0.16-1.47); MONOCYTES PERCENT AUTO 11 % (4-13); Mean Corpuscular HGB Conc 32.0 g/dL (31.5-36.5); Mean Corpuscular Volume 101 fL (80-100); NEUTROPHILS ABSOLUTE AUTO 4.52 K/mm3 (1.96-9.15); NEUTROPHILS PERCENT AUTO 73 % (41-73); NRBC ABSOLUTE 0.00 K/mm3 (0.00-0.02); NRBC Auto 0.0 /100 WBC (0.0-0.2); Platelet Count 129 K/mm3 (150-400); RDW Coefficient Variation 13.3 % (11.7-14.2); RDW Standard Deviation 49.3 fL (35.1-46.3)
[2024-11-04 05:51] LABS: Anion Gap 8.0 mmol/L (3-11); Blood Urea Nitrogen 13.0 mg/dL (8-24); CO2, Blood 24.0 mmol/L (21-32); Calcium, Blood 7.5 mg/dL (8.5-10.1); Chloride, Blood 107.0 mmol/L (98-108); Creatinine, Blood 0.58 mg/dL (0.40-1.00); Glucose, Blood 120.0 mg/dL (70-99); Potassium, Blood 3.8 mmol/L (3.5-5.5); Sodium, Blood 135.0 mmol/L (136-145)
--- NOTE | 2024-11-04 06:19 | NUR ---
SHIFT SUMMARY NOC. PT POD 1 FOR ORIF OF LEFT ANKLE AND NON SURGICAL L HUMERAL FX POST GLF. PT PMHX FOR VON WILLEBRAND. DRESSING TO LLE IS C/D/I AND ELEVATED ON PILLOWS, PT TOLERATED ICE PACKS INTERMITTENTLY WITH REDUCED SWELLING. PT MEDICATED FOR PAIN WITH ORAL OXYCODONE. PT RECEIVED A FLUID BOLUS THIS SHIFT R/T SOFT BPS. PLEASE SEE PREV NOTES FOR DETAILS. PT'S JC HAS SEDIMENT PRESENT IN CATHETER AND HAS FOUL ODOR. MAINT FLUIDS RUNNING. MAKES NEEDS KNOWN, CALL LIGHT IN REACH.
--- NOTE | 2024-11-04 18:48 | NUR ---
SHIFT SUMMARY POD 1 ORIF, A/OX4, VSS, TOLERATING PO, UP TO CHAIR WITH THERAPY, JC CATH REMOVED THIS SHIFT, PENDING DISCHARGE PLAN FOR REHAB. NO ACUTE EVENTS THIS SHIFT, CALL LIGHT IN REACH.
[2024-11-04] MEDS ORDERED: NS 500 ML IV ONE (20:30)
[2024-11-04] MEDS ORDERED: NS 1,000 ML IV SCH (21:00)
[2024-11-05 02:25] VITALS: BP 118/67
[2024-11-05 05:41] LABS: BASOPHILS ABSOLUTE AUTO 0.03 K/mm3 (0.00-0.23); BASOPHILS PERCENT AUTO 1 % (0-2); EOSINOPHILS ABSOLUTE AUTO 0.09 K/mm3 (0.00-0.68); EOSINOPHILS PERCENT AUTO 2 % (0-6); Hematocrit 30.9 % (33.0-51.0); Hemoglobin 9.8 g/dL (11.5-16.0); IMMATURE GRAN ABSOLUTE AUTO 0.01 K/mm3 (0.00-0.10); IMMATURE GRAN PERCENT AUTO 0 % (0-1); LYMPHOCYTES ABSOLUTE AUTO 1.52 K/mm3 (0.84-5.20); LYMPHOCYTES PERCENT AUTO 32 % (21-46); MONOCYTES ABSOLUTE AUTO 0.68 K/mm3 (0.16-1.47); MONOCYTES PERCENT AUTO 14 % (4-13); Mean Corpuscular HGB Conc 31.7 g/dL (31.5-36.5); Mean Corpuscular Volume 102 fL (80-100); NEUTROPHILS ABSOLUTE AUTO 2.41 K/mm3 (1.96-9.15); NEUTROPHILS PERCENT AUTO 51 % (41-73); NRBC ABSOLUTE 0.00 K/mm3 (0.00-0.02); NRBC Auto 0.0 /100 WBC (0.0-0.2); Platelet Count 130 K/mm3 (150-400); RDW Coefficient Variation 13.2 % (11.7-14.2); RDW Standard Deviation 49.4 fL (35.1-46.3)
[2024-11-05 05:59] LABS: Anion Gap 9.0 mmol/L (3-11); Blood Urea Nitrogen 10.0 mg/dL (8-24); CO2, Blood 22.0 mmol/L (21-32); Calcium, Blood 7.0 mg/dL (8.5-10.1); Chloride, Blood 106.0 mmol/L (98-108); Creatinine, Blood 0.55 mg/dL (0.40-1.00); Glucose, Blood 82.0 mg/dL (70-99); Potassium, Blood 3.7 mmol/L (3.5-5.5); Sodium, Blood 133.0 mmol/L (136-145)
--- NOTE | 2024-11-05 07:22 | NUR ---
SHIFT SUMMARY NOC. PT POD 2 FOR ORIF OF L ANKLE ANSD NON-SURGICAL LEFT HUMERUS FX POST GLF. PT DRESSING TO LLE IS C/D/I, ELEVATED WITH ICE PACKS IN PLACE. PT MEDICATED FOR PAIN WITH REPORTED RELIEF OF SX. PT RECEIVED A FLUID BOLUS AT START OF SHIFT FOR SBP OF 99. MAINTENENCE FLUIDS ORDERED FOR RATE OF 125 ML/HR. REPAIRER ART OBJECTSTHERESA Richards CALLED FOR ORDER. PT VOIDING URINE WITH ATTENDS AND PUREWICK IN PLACE. PT MAKES NEEDS KNOWN, CALL LIGHT IN REACH.
[2024-11-05 08:09] VITALS: BP 120/70
--- NOTE | 2024-11-05 15:55 | NUR ---
ATTEMPTED TO CALL PT'S SISTER JUAN ALBERTO PER PT REQUEST OF PT TRANSFERRING TO [facility]. NO ANSWER.
--- NOTE | 2024-11-05 16:13 | NUR ---
DISHCARGE SUMMARY PIV REMOVED PRIOR TO DISCHARGE, REPORT CALLED TO [facility], PT TAKEN BY MEDICAL TRANSPORT.
== END 2024-11-05 15:50 | DRG 493 ==
LOC: ER 13:39 → SURS 18:18 → PCU 18:18 → SURS 11-02 13:32
PROVIDERS: Emergency Medicine; Family Medicine; Nurse Practitioner Acute Care; Orthopaedic Surgery; Student in an Organized Health Care Education/Training Program; ADMIT Student in an Organized Health Care Education/Training Program
PROC: 0QSK04Z Reposition Left Fibula with Internal Fixation Device, Open Approach (ICD-10-PCS; principal; 2024-11-03 14:30)
DX: S42.292A Other displaced fracture of upper end of left humerus, initial encounter for closed fracture (principal); D68.00 Von Willebrand disease, unspecified; E87.29 Other acidosis; S82.842A Displaced bimalleolar fracture of left lower leg, initial encounter for closed fracture; I12.9 Hypertensive chronic kidney disease with stage 1 through stage 4 chronic kidney disease, or unspecified chronic kidney disease; E11.22 Type 2 diabetes mellitus with diabetic chronic kidney disease; N18.30 Chronic kidney disease, stage 3 unspecified; M79.7 Fibromyalgia; I25.2 Old myocardial infarction; E03.9 Hypothyroidism, unspecified; J45.909 Unspecified asthma, uncomplicated; I25.10 Atherosclerotic heart disease of native coronary artery without angina pectoris; K21.9 Gastro-esophageal reflux disease without esophagitis; G89.29 Other chronic pain; Z79.890 Hormone replacement therapy; Z79.899 Other long term (current) drug therapy; Z90.89 Acquired absence of other organs; Z90.710 Acquired absence of both cervix and uterus; Z98.890 Other specified postprocedural states; Z98.84 Bariatric surgery status; Z90.49 Acquired absence of other specified parts of digestive tract; Z88.1 Allergy status to other antibiotic agents; Z88.8 Allergy status to other drugs, medicaments and biological substances; Z91.030 Bee allergy status; W10.9XXA Fall (on) (from) unspecified stairs and steps, initial encounter
CPT/HCPCS: 27810; 36415; 51702; 73030; 73070; 73200; 73610; 73700; 76377; 80048; 80053; 81001; 81025; 82803; 85014; 85018; 85025; 85027; 85610; 93005; 93010; 94760; 94762; 96374-59; 96375-59; 96376-59; 97110; 97162; 97166; 97530; 99285-25; A9270; C1713; J0690; J1100; J1171; J1885; J2250; J2270; J2312; J2405; J2597; J2704; J3010; J7030; J7040; J7120; U0002

== ENCOUNTER 2024-11-30 15:36 | Observation (INO) | payer OTHER, MEDICARE ==
[~2024-11-30] VITALS: Ht 175.3 cm; Wt 68.0 kg
[~2024-11-30 15:36] MED LIST changes: +B-12500 MC2 PO; +BUME2 PO; +BUPROPION XL150 M1 PO; +DULO30; +FOLI1 PO; +LEVSOD88 PO; +PREG300 PO; +PREGABALIN PO; +VITAMIN B12500 MCG PO
[2024-11-30] MEDS ORDERED: TOPI100 PO (16:02)
[2024-11-30] MEDS ORDERED: MIDO5 PO (16:03)
[2024-11-30] MEDS ORDERED: BISA10S PR (16:03)
[2024-11-30] MEDS ORDERED: Calcium Carbon500 MG PO (16:04)
[2024-11-30] MEDS ORDERED: ONDA4ODT (16:04)
[2024-11-30] MEDS ORDERED: Morphine Sulfate 4 MG/1 ML Injection IV ONE (16:05)
[2024-11-30] MEDS ORDERED: ACET325 PO (16:05)
[2024-11-30] MEDS ORDERED: PROAIR DIGIHAL90 MCG (16:05)
[2024-11-30 17:10] LABS: BASOPHILS ABSOLUTE AUTO 0.04 K/mm3 (0.00-0.23); BASOPHILS PERCENT AUTO 1 % (0-2); EOSINOPHILS ABSOLUTE AUTO 0.19 K/mm3 (0.00-0.68); EOSINOPHILS PERCENT AUTO 4 % (0-6); Hematocrit 36.4 % (33.0-51.0); Hemoglobin 11.9 g/dL (11.5-16.0); IMMATURE GRAN ABSOLUTE AUTO 0.01 K/mm3 (0.00-0.10); IMMATURE GRAN PERCENT AUTO 0 % (0-1); LYMPHOCYTES ABSOLUTE AUTO 1.68 K/mm3 (0.84-5.20); LYMPHOCYTES PERCENT AUTO 31 % (21-46); MONOCYTES ABSOLUTE AUTO 0.53 K/mm3 (0.16-1.47); MONOCYTES PERCENT AUTO 10 % (4-13); Mean Corpuscular HGB Conc 32.7 g/dL (31.5-36.5); Mean Corpuscular Volume 100 fL (80-100); NEUTROPHILS ABSOLUTE AUTO 2.92 K/mm3 (1.96-9.15); NEUTROPHILS PERCENT AUTO 54 % (41-73); NRBC ABSOLUTE 0.00 K/mm3 (0.00-0.02); NRBC Auto 0.0 /100 WBC (0.0-0.2); Platelet Count 174 K/mm3 (150-400); RDW Coefficient Variation 13.6 % (11.7-14.2); RDW Standard Deviation 50.3 fL (35.1-46.3)
[2024-11-30 17:33] LABS: Alanine Aminotransfer (ALT/SGP 18.0 U/L (12-78); Albumin, Blood 3.3 g/dL (3.4-5.0); Albumin/Globulin Ratio 1.0 (0.8-1.8); Anion Gap 3.0 mmol/L (3-11); Aspartate Aminotrans (AST/SGOT 15.0 U/L (12-37); Bilirubin, Total 0.3 mg/dL (0.1-1.0); Blood Urea Nitrogen 20.0 mg/dL (8-24); CO2, Blood 30.0 mmol/L (21-32); Calcium, Blood 9.0 mg/dL (8.5-10.1); Chloride, Blood 110.0 mmol/L (98-108); Creatinine, Blood 0.9 mg/dL (0.40-1.00); Globulin, Blood 3.2 g/dL (2.2-4.0); Glucose, Blood 66.0 mg/dL (70-99); Potassium, Blood 4.1 mmol/L (3.5-5.5); Sodium, Blood 139.0 mmol/L (136-145); Total Protein, Blood 6.5 g/dL (6.4-8.2)
[2024-11-30] MEDS ORDERED: Ondansetron HCl 2 MG / ML 2ML Vial IV PRN (19:00)
[2024-11-30] MEDS ORDERED: OxyCODONE 5 mg/Acetamin 325 mg TABLET PO PRN (19:00)
[2024-11-30] MEDS ORDERED: Morphine Sulfate 4 MG/1 ML Injection IV PRN (19:00)
[2024-11-30] MEDS ORDERED: Albuterol 2.5 MG/3 ML VIAL INH PRN (19:15)
[2024-11-30] MEDS ORDERED: NS 1,000 ML IV SCH ×2 (19:20→23:30)
[2024-11-30] MEDS ORDERED: FLU VACC TS2025(65UP)/MF59C/PF 45 MCG/0.5 ML SYRINGE IM SCH (19:30)
[2024-11-30] MEDS ORDERED: NS 500 ML IV ONE (20:00)
[2024-11-30 20:31] VITALS: BP 98/60
[2024-11-30] MEDS ORDERED: PREG150 PO (21:09)
--- NOTE | 2024-11-30 22:40 | NUR ---
ARRIVAL TO UNIT @2029 FROM ER VIA GURNEY FOR DISPLACED L HUMERAL FX. VSS. HRR. PT CHANGED INTO GOWN AND ORIENTED TO ROOM. PT STATES PAIN TOLERABLE UNLESS LUE IS MOVED OR PRESSURE ADDED TO LUE. PT ABLE TO WIGGLE FINGERS OF LUE W/ CAP REFILL < 3 SEC. BUE PULSES EQUAL BILATERALLY. SKATE MAKER STRENGTH DIMINISHED IN LUE. CALL LIGHT WITHIN REACH.
[2024-12-01] VITALS (8 sets, daily range): BP systolic 82–102; BP diastolic 43–60
[2024-12-01] MEDS ORDERED: Insulin Human Lispro 100 Units/ML 3ML Syringe SC SCH
--- NOTE | 2024-12-01 05:47 | NUR ---
SHIFT SUMMARY PT ADMITTED FOR L HUMERAL FX. A&O X4. PAIN MANAGED WELL PER EMAR. L ARM IN SLING, PT DENIES N/T, CAP REFILL < 3 SEC. PT INDEPENDENT AT BASELINE, BUT PT REQUESTING BEDREST DUE TO PAIN AND CAST TO LEFT FOOT/ANKLE. PUREWICK IN PLACE, SET TO LOW CONTINUOUS SUCTION, DRAINING CLEAR YELLOW URINE. PLAN FOR SURGERY TODAY. PT NPO SINCE 0000. PT RESTING IN BED, RESPIRATIONS EVEN AND UNLABORED, NO DISTRESS NOTED. CALL LIGHT WITHIN REACH.
[2024-12-01] MEDS ORDERED: CefTRIAXone 1000 MG Vial IM ONE (06:55)
[2024-12-01] MEDS ORDERED: CefTRIAXone 2000 MG Vial IM ONE (07:05)
[2024-12-01] MEDS ORDERED: Tranexamic Acid 100 ML IV SCH (07:10)
--- NOTE | 2024-12-01 07:57 | NUR ---
bp 86/[address] CALZADA. ORDERS TO START FLUIDS AT 125/HR WHEN RETURNS FROM CT.
[2024-12-01] MEDS ORDERED: DULoxetine HCL 60 MG Capsule DR PO SCH (09:00)
[2024-12-01] MEDS ORDERED: Cholecalciferol 1000 Unit Tablet (=25MCG) PO SCH (09:00)
--- NOTE | 2024-12-01 09:20 | NUR ---
DR CALZADA IN TO SEE PT.
[2024-12-01] MEDS ORDERED: Ondansetron HCl 2 MG / ML 2ML Vial IV PRN ×2 (09:45→15:20)
[2024-12-01] MEDS ORDERED: FentaNYL Citrate 50 MCG/ML 2 ML Injection IV PRN ×2 (09:45)
[2024-12-01] MEDS ORDERED: HYDROmorphone HCl/Pf 1MG SYR IV PRN ×3 (09:45→15:30)
[2024-12-01] MEDS ORDERED: ePHEDrine Sulfate 50 MG/ML 1ML Injection IV PRN (09:45)
[2024-12-01] MEDS ORDERED: Albuterol 2.5 MG/3 ML VIAL INH PRN (09:45)
[2024-12-01] MEDS ORDERED: HydrALAZINE HCl 20 MG / ML 1ML Vial IV PRN (09:50)
[2024-12-01] MEDS ORDERED: DESMOPRESSIN ACETATE IV SCH (11:30)
[2024-12-01] MEDS ORDERED: NS IV SCH (11:30)
[2024-12-01] MEDS ORDERED: D5W-1/2NS 1,000 ML IV SCH (12:05)
--- NOTE | 2024-12-01 12:40 | NUR ---
PT TO DAY SURGERY AT THIS TIME
[2024-12-01] MEDS ORDERED: CefTRIAXone 2000 MG Vial IM SCH (13:20)
[2024-12-01] MEDS ORDERED: NS 1,000 ML IV SCH (13:30)
[2024-12-01] MEDS ORDERED: Bupivacaine 0.5% HCl 5 MG/ML 30MLVIAL EPI ONE (13:41)
--- NOTE | 2024-12-01 14:06 | NUR ---
History, Chart, Medications and Allergies reviewed before start of procedure. Patient confirms NPO status and agrees with scheduled surgery. Pre-Op teaching done. Pt verbalizes understanding. Lungs clear T/O to Auscultation. PT REPORTS THAT SHE HAS HAD DIARRHEA FOR A WHILE. PT ATTENDS CHANGES, NOTED SOFT BROWN STOOL, NEW ATTENDS PLACED AND PUREWICK PLACED FOR PATIENT COMFORT WHILE SHE WAITS TO GO TO SURGERY.
[2024-12-01] MEDS ORDERED: Chlorhexidine Mouth Care 15 ML UDC MT SCH (14:20)
--- NOTE | 2024-12-01 14:24 | NUR ---
REPORT GIVEN TO GILBERTO CARDENAS TO ASSUME CARE OF PATIENT.
[2024-12-01] MEDS ORDERED: FLU VACC TS2025-26(6MOS UP)/PF 45 MCG/0.5 ML SYRINGE IM SCH (15:15)
[2024-12-01] MEDS ORDERED: Prochlorperazine Edisylate 10 mg Vial IV PRN (15:25)
[2024-12-01] MEDS ORDERED: Metoclopramide HCl 5MG / ML 2ML Vial IV PRN (15:25)
[2024-12-01] MEDS ORDERED: Magnesium Hydroxide Conc 10 ML UDC PO PRN (15:25)
--- NOTE | 2024-12-01 16:45 | NUR ---
PT ARRIVED BACK TO UNIT FROM DAY SURGERY SURGERY DELAYED UNTIL TOMORROW. PT TO BE NPO AT MD FOR SURGERY TOMORROW. PUREWICK IN PLACE. CALL LIGHT IN REACH.
--- NOTE | 2024-12-01 17:34 | NUR ---
TURNED OVER CARE TO FUAD Hammonds RN
[2024-12-01] MEDS ORDERED: Ketorolac Tromethamine 15mg Vial IV SCH (18:00)
[2024-12-01 20:42] LABS: Anion Gap 6.0 mmol/L (3-11); Blood Urea Nitrogen 19.0 mg/dL (8-24); CO2, Blood 26.0 mmol/L (21-32); Calcium, Blood 8.5 mg/dL (8.5-10.1); Chloride, Blood 112.0 mmol/L (98-108); Creatinine, Blood 0.77 mg/dL (0.40-1.00); Glucose, Blood 124.0 mg/dL (70-99); Potassium, Blood 3.8 mmol/L (3.5-5.5); Sodium, Blood 140.0 mmol/L (136-145)
[2024-12-01] MEDS ORDERED: NS 500 ML IV SCH (20:45)
[2024-12-02] VITALS (13 sets, daily range): BP systolic 95–134; BP diastolic 57–69
[2024-12-02 05:09] LABS: BASOPHILS ABSOLUTE AUTO 0.02 K/mm3 (0.00-0.23); BASOPHILS PERCENT AUTO 1 % (0-2); EOSINOPHILS ABSOLUTE AUTO 0.14 K/mm3 (0.00-0.68); EOSINOPHILS PERCENT AUTO 4 % (0-6); Hematocrit 32.8 % (33.0-51.0); Hemoglobin 10.7 g/dL (11.5-16.0); IMMATURE GRAN ABSOLUTE AUTO 0.01 K/mm3 (0.00-0.10); IMMATURE GRAN PERCENT AUTO 0 % (0-1); LYMPHOCYTES ABSOLUTE AUTO 1.42 K/mm3 (0.84-5.20); LYMPHOCYTES PERCENT AUTO 38 % (21-46); MONOCYTES ABSOLUTE AUTO 0.37 K/mm3 (0.16-1.47); MONOCYTES PERCENT AUTO 10 % (4-13); Mean Corpuscular HGB Conc 32.6 g/dL (31.5-36.5); Mean Corpuscular Volume 99 fL (80-100); NEUTROPHILS ABSOLUTE AUTO 1.83 K/mm3 (1.96-9.15); NEUTROPHILS PERCENT AUTO 48 % (41-73); NRBC ABSOLUTE 0.00 K/mm3 (0.00-0.02); NRBC Auto 0.0 /100 WBC (0.0-0.2); Platelet Count 128 K/mm3 (150-400); RDW Coefficient Variation 13.8 % (11.7-14.2); RDW Standard Deviation 50.3 fL (35.1-46.3)
[2024-12-02 05:32] LABS: Anion Gap 6.0 mmol/L (3-11); Blood Urea Nitrogen 19.0 mg/dL (8-24); CO2, Blood 24.0 mmol/L (21-32); Calcium, Blood 8.2 mg/dL (8.5-10.1); Chloride, Blood 110.0 mmol/L (98-108); Creatinine, Blood 0.59 mg/dL (0.40-1.00); Glucose, Blood 89.0 mg/dL (70-99); Magnesium, Blood 2.0 mg/dL (1.6-2.4); Potassium, Blood 3.4 mmol/L (3.5-5.5); Sodium, Blood 137.0 mmol/L (136-145)
[2024-12-02] MEDS ORDERED: CefTRIAXone 2000 MG Vial IV SCH (06:00)
[2024-12-02] MEDS ORDERED: CefTRIAXone Sodium 2,000 MG in NS 100 ML IV SCH (06:00)
[2024-12-02] MEDS ORDERED: Tranexamic Acid 100 ML IV PRN (06:00)
--- NOTE | 2024-12-02 06:23 | NUR ---
SHIFT SUMMARY NOC. PT PREOP FOR LEFT HUMORAL FX REPAIR. PT NPO SINCE 0000. PT MEDICATED FOR PAIN WITH SOME RELIEF OF SX. PT TEARFUL AT TIMES R/T PAIN. REPOSITIONING AND KPAD ALSO USED FOR COMFORT. LLE CAST IS C/D/I. PT HAD AN EPISODE OF HYPOTENSION AT START OF SHIFT AND NS 500 BOLUS WAS ORDERED AND ADMINISTERED WITH IMPROVED BP. PT MAKES NEEDS KNOWN, CALL LIGHT IN REACH.
[2024-12-02] MEDS ORDERED: NS 1,000 ML IV SCH (07:15)
[2024-12-02] MEDS ORDERED: Potassium Chl 20MEQ/Water100ML 100 ML IV STA (08:14)
[2024-12-02] MEDS ORDERED: Trimethoprim/Sulfamethoxazole DS Tab PO SCH (09:00)
--- NOTE | 2024-12-02 12:18 | NUR ---
PT TO DAY SURGERY VIA HOSPITAL BED
[2024-12-02] MEDS ORDERED: FentaNYL Citrate 50 MCG/ML 2 ML Injection IV ONE ×3 (13:05→14:00)
[2024-12-02] MEDS ORDERED: Midazolam HCl 1MG / ML 2ML Vial IV ONE (13:13)
[2024-12-02] MEDS ORDERED: EpiNEPhrine 1 MG/1 ML 1ML Vial IV ONE (13:14)
[2024-12-02] MEDS ORDERED: Bupivacaine 0.5% HCl 5 MG/ML 30MLVIAL INJ ONE (13:14)
--- NOTE | 2024-12-02 13:25 | NUR ---
BLOCK INTRA-SCAL TIMOUT: 1323 WITH BUTMU START: 1327 END: 1340 MONITORED T/O PROCEDURE WITH SPO2. TOW WELL, VERSED/FENT GIVEN PER BUTMU.
[2024-12-02] MEDS ORDERED: Ondansetron HCl 2 MG / ML 2ML Vial IV ONE (13:40)
[2024-12-02] MEDS ORDERED: Rocuronium Bromide 10 MG/ML 5ML Injection IV ONE (13:54)
[2024-12-02] MEDS ORDERED: Bupivacaine 0.5% W/EPI 1:200000 SDV 30 ML Vial ONE (14:06)
[2024-12-02] MEDS ORDERED: ePHEDrine Sulfate 50 MG/ML 1ML Injection IV ONE ×2 (14:14→15:10)
[2024-12-02] MEDS ORDERED: FentaNYL Citrate 50 MCG/ML 2 ML Injection IV PRN ×2 (14:50→14:55)
[2024-12-02] MEDS ORDERED: Labetalol HCL 5 MG/ML 4ML Injection (Single Dose) IV PRN (14:55)
[2024-12-02] MEDS ORDERED: Ondansetron HCl 2 MG / ML 2ML Vial IV PRN (14:55)
[2024-12-02] MEDS ORDERED: HYDROmorphone HCl/Pf 1MG SYR IV PRN ×2 (14:55)
[2024-12-02] MEDS ORDERED: Sugammadex Sodium 200 MG/2ML SDV (100 MG/ML) IV ONE (15:51)
[2024-12-02] MEDS ORDERED: Tranexamic Acid 1,000 MG/0.7% NaCl 100 ML BAG IV ONE (16:24)
[2024-12-02] MEDS ORDERED: Ondansetron HCl 2 MG / ML 2ML Vial ONE (17:20)
--- NOTE | 2024-12-02 17:47 | NUR ---
Pt returned to room from PACU, she is awake, a bit nauseated, pain ok, b/p in the 90's, map over 70, cbg is 65, charge master specialist restarted d5, dressing to left shoulder c/d/i, sling on arm, call light in reach.
[2024-12-02] MEDS ORDERED: Insulin Human Lispro 100 Units/ML 3ML Syringe SC SCH (21:00)
[2024-12-03 04:14] LABS: Hematocrit 30.3 % (33.0-51.0); Hemoglobin 9.6 g/dL (11.5-16.0); Mean Corpuscular HGB Conc 31.7 g/dL (31.5-36.5); Mean Corpuscular Volume 101 fL (80-100); NRBC ABSOLUTE 0.00 K/mm3 (0.00-0.02); NRBC Auto 0.0 /100 WBC (0.0-0.2); Platelet Count 113 K/mm3 (150-400); RDW Coefficient Variation 13.5 % (11.7-14.2); RDW Standard Deviation 50.3 fL (35.1-46.3)
[2024-12-03 04:19] VITALS: BP 90/49
[2024-12-03 04:35] LABS: Albumin, Blood 2.7 g/dL (3.4-5.0); Anion Gap 7 mmol/L (3-11); Blood Urea Nitrogen 13 mg/dL (8-24); CO2, Blood 25 mmol/L (21-32); Calcium, Blood 7.8 mg/dL (8.5-10.1); Chloride, Blood 106 mmol/L (98-108); Creatinine, Blood 0.48 mg/dL (0.40-1.00); Glucose, Blood 109 mg/dL (70-99); Magnesium, Blood 1.8 mg/dL (1.6-2.4); Phosphorus, Blood 3.2 mg/dL (2.5-4.9); Potassium, Blood 3.6 mmol/L (3.5-5.5); Sodium, Blood 134 mmol/L (136-145)
--- NOTE | 2024-12-03 06:38 | NUR ---
UPDATE PT TEARFUL, REPORTING 10/10 PAIN IN LEFT SHOULDER. MEDICATED FOR PER EMAR FOR PAIN AND NAUSEA. PT REPORTS RELIEF. PT AND SLING REPOSITIONED FOR COMFORT. PT WILLING TO TRY CRYO TO SHOULDER AGAIN, APPLIED AT THIS TIME. HAS CALL LIGHT IN REACH. ENCOURAGED OOB AND PO INTAKE TODAY ABLE. WILL GIVE REPORT TO DAY RN
[2024-12-03 07:30] VITALS: BP 114/63
--- NOTE | 2024-12-03 13:46 | NUR ---
DISHCARGE PATIENT IV TAKEN OUT, VSS, WORKS WITH PT/OT. TRANSFER PACKET WITH PRESCRIPTIONS GIVEN TO FOUR H AGENT. ICE MACHINE PACKED UP. PATIENT IS TRANSPORTED VIA WHEEL CHAIR. SHOULDER DRESSINGIS C/D/I. REPORT CALLED AND GIVEN TO [facility].
== END 2024-12-03 13:41 ==
LOC: ER 15:36 → SURS 15:38 → ER 18:56 → SURS 19:50
PROVIDERS: Emergency Medicine; Internal Medicine; Orthopaedic Surgery; ADMIT Internal Medicine
PROC: 0RRK00Z Replacement of Left Shoulder Joint with Reverse Ball and Socket Synthetic Substitute, Open Approach (ICD-10-PCS; principal; 2024-12-02 13:00)
DX: S42.202A Unspecified fracture of upper end of left humerus, initial encounter for closed fracture (principal); E03.9 Hypothyroidism, unspecified; E87.6 Hypokalemia; K21.9 Gastro-esophageal reflux disease without esophagitis; D68.00 Von Willebrand disease, unspecified; N18.30 Chronic kidney disease, stage 3 unspecified; I12.9 Hypertensive chronic kidney disease with stage 1 through stage 4 chronic kidney disease, or unspecified chronic kidney disease; I25.10 Atherosclerotic heart disease of native coronary artery without angina pectoris; J45.909 Unspecified asthma, uncomplicated; Z88.8 Allergy status to other drugs, medicaments and biological substances; Z88.1 Allergy status to other antibiotic agents; Z91.030 Bee allergy status; Z79.899 Other long term (current) drug therapy
CPT/HCPCS: 36415; 73030; 73200; 80048; 80053; 80069; 82947; 83735; 85025; 85027; 96374; 97162; 97166; 97530; 97535; 99285-25; A9270; C1713; C1776; G0378; J0169; J0696; J0780; J1171; J2250; J2270; J2405; J2597; J2704; J3010; J3373; J3480; J7030; J7040; J7042; J7050